=== PATIENT | female | born 1985 | race Caucasian/White ===

== ENCOUNTER 2017-04-20 13:18 | Inpatient (IN) | payer BC ==
[~2017-04-20] VITALS: Ht 157.5 cm; Wt 45.0 kg
[2017-04-20] VITALS (7 sets, daily range): BP systolic 87–149; BP diastolic 53–75; PULSE 81–114; RESP 14–16; TEMP 95.5–99.8; O2SAT 96–99
[~2017-04-20 13:18] MED LIST: LORT5TAB PO; Z.0.NO CURRENT MEDS
--- NOTE | 2017-04-20 13:50 | PD ---
HPI Chief Complaint: Skin Problem Time Seen by Provider: 13:49 Travel History International Travel<30 days: No Contact w/Intl Traveler<30days: No Traveled to known affect area: No History of Present Illness HPI 31-year-old occasional female with history of IV drug abuse presents to emergency Department with large swelling with erythema and tenderness in the right upper medial inner thigh, with chills and low-grade fever. She states she 's had this developing over the past week. There is no drainage. Patient denies nausea, vomiting, shortness of breath, or cough. She denies chest pain or abdominal pain.. He denies numbness or tingling in the right leg. She denies vaginal or urinary symptoms. She denies as she is currently on her period. Patient is noted to have low-grade temperature and tachycardia in triage. She has no known drug allergies. PFSH Past Medical History Diminished Hearing: No ?: Not LMP: 04/17/17 Social History Alcohol Use: Yes (OCCASIONAL) Tobacco Use: Yes (1/2 PPD) Substance Use: No Allergies-Medications (Allergen,Severity, Reaction): Coded Allergies: No Known Allergies (Unverified , 04/20/17) Reported Meds & Prescriptions Reported Meds & Active Scripts Active No Active Prescriptions or Reported Medications Review of Systems Except as stated in HPI: all other systems reviewed are Neg General / Constitutional: Positive: Fever, Chills Eyes: No: Visual changes HENT: No: Headaches, Vertigo, Lightheadedness, Sore Throat, Rhinitis, Rhinorrhea, Congestion, Nosebleed, Neck Stiffness, Neck Pain, Dental Difficulties, Earache Cardiovascular: No: Chest Pain or Discomfort Respiratory: No: Shortness of Breath Gastrointestinal: No: Nausea, Vomiting, Diarrhea, Abdominal Pain Genitourinary: No: Urgency, Frequency, Dysuria, Pelvic Pain, Flank Pain, Discharge Musculoskeletal: No: Pain Skin: Positive Lesions, No Rash Neurologic: No: Weakness Psychiatric: No: Depression Endocrine: No: Polydipsia Hematologic/Lymphatic: No: Easy Bruising Physical Exam Narrative GENERAL: She appears in mild to moderate distress. SKIN: Warm and dry. Normal color. Normal turgor. Patient has multiple obvious injection arce to both hands and forearms. Patient has a firm erythematous swollen indurated nonfluctuant area to the right upper medial inner thigh measuring 12 cm x 8 cm without obvious pointing. It does not seem to involve the inguinal lymph nodes at this time. It is not associated with the perineum. HEAD: Atraumatic. Normocephalic. EYES: Pupils equal and round. No scleral icterus. No injection or drainage. ENT: No nasal bleeding or discharge. Mucous membranes pink and moist. NECK: Trachea midline. No JVD. CARDIOVASCULAR: Regular rate and rhythm. RESPIRATORY: No accessory muscle use. Clear to auscultation. Breath sounds equal bilaterally. GASTROINTESTINAL: Abdomen soft, non-tender, nondistended. Hepatic and splenic margins not palpable. MUSCULOSKELETAL: Extremities without clubbing, cyanosis, or edema. No obvious deformities. NEUROLOGICAL: Awake and alert. No obvious cranial nerve deficits. Motor grossly within normal limits. Five out of 5 muscle strength in the arms and legs. Normal speech. PSYCHIATRIC: Appropriate mood and affect; insight and judgment normal. Data Data Last Documented VS Vital Signs Date Time Temp Pulse Resp B/P (MAP) Pulse Ox O2 Delivery O2 Flow Rate FiO2 04/20/17 14:23 Room Air 04/20/17 14:23 04/20/17 13:51 100 04/20/17 13:19 99.8 14 99 Orders Orders Sepsis Workup Initiated (04/20/17 ) Electrocardiogram (04/20/17 13:55) Complete Blood Count With Diff (04/20/17 13:55) Comprehensive Metabolic Panel (04/20/17 13:55) Prothrombin Time / Inr (Pt) (04/20/17 13:55) Act Partial Throm Time (Ptt) (04/20/17 13:55) Lactic Acid Sepsis Protocol (04/20/17 13:55) Urinalysis - C+S If Indicated (04/20/17 13:55) Blood Culture (04/20/17 13:55) Chest, Single Ap (04/20/17 13:55) Blood Glucose (04/20/17 13:55) Ecg Monitoring (04/20/17 13:55) Iv Access Insert/Monitor (04/20/17 13:55) Oximetry (04/20/17 13:55) Oxygen Administration (04/20/17 13:55) Piperacil-Tazo 4.5 Gm Premix (Zosyn 4.5 (04/20/17 13:55) Vancomycin Inj (Vancomycin Inj) (04/20/17 13:55) Sodium Chlor 0.9% 1000 Ml Inj (Ns 1000 M (04/20/17 13:55) Sodium Chlor 0.9% 1000 Ml Inj (Ns 1000 M (04/20/17 13:55) Sodium Chlor 0.9% 1000 Ml Inj (Ns 1000 M (04/20/17 13:55) Acetaminophen (Tylenol) (04/20/17 14:00) Ct Femur W Iv Contrast (04/20/17 ) Vascular Access Team Consult/P PRN (04/20/17 14:46) Vascular Poc Ultrasound (04/20/17 ) Labs Laboratory Tests Test 04/20/17 14:20 White Blood Count 9.1 TH/MM3 Red Blood Count 4.11 MIL/MM3 Hemoglobin 13.6 GM/DL Hematocrit 38.3 % Mean Corpuscular Volume 93.3 FL Mean Corpuscular Hemoglobin 33.2 PG Mean Corpuscular Hemoglobin Concent 35.6 % Red Cell Distribution Width 15.1 % Platelet Count 192 TH/MM3 Mean Platelet Volume 7.7 FL Neutrophils (%) (Auto) 77.0 % Lymphocytes (%) (Auto) 17.8 % Monocytes (%) (Auto) 4.6 % Eosinophils (%) (Auto) 0.4 % Basophils (%) (Auto) 0.2 % Neutrophils # (Auto) 7.0 TH/MM3 Lymphocytes # (Auto) 1.6 TH/MM3 Monocytes # (Auto) 0.4 TH/MM3 Eosinophils # (Auto) 0.0 TH/MM3 Basophils # (Auto) 0.0 TH/MM3 CBC Comment DIFF FINAL Differential Comment Prothrombin Time 11.1 SEC Prothromb Time International Ratio 1.1 RATIO Activated Partial Thromboplast Time 23.1 SEC Blood Urea Nitrogen 10 MG/DL Creatinine 0.70 MG/DL Random Glucose 88 MG/DL Total Protein 8.3 GM/DL Albumin 3.5 GM/DL Calcium Level 9.0 MG/DL Alkaline Phosphatase 74 U/L Aspartate Amino Transf (AST/SGOT) 39 U/L Alanine Aminotransferase (ALT/SGPT) 20 U/L Total Bilirubin 0.8 MG/DL Sodium Level 135 MEQ/L Potassium Level 3.3 MEQ/L Chloride Level 101 MEQ/L Carbon Dioxide Level 24.9 MEQ/L Anion Gap 9 MEQ/L Estimat Glomerular Filtration Rate 98 ML/MIN Lactic Acid Level 1.1 mmol/L MDM Medical Decision Making Medical Screen Exam Complete: Yes Emergency Medical Condition: Yes Differential Diagnosis Early sepsis. Cellulitis. Large abscess to the right thigh. It should IV drug use. Probable MRSA. Narrative Course Sepsis protocol was initiated. Labs ordered including CBC, CMP, urinalysis, urine , lactic acid, coagulations studies. IV access is obtained, and patient is given 4.5 g Zosyn IV as well as [address] of the right femur is ordered with contrast to evaluate abscess versus cellulitis extent. Patient is given acetaminophen 650 mg by mouth. Patient is given 2 L normal saline bolus. CT of the right femur shows: 1. There is diffuse nonspecific edema throughout the subcutaneous soft tissues along the medial aspect of the right thigh. 2. Small focal fluid collection in the upper medial thigh measuring 2.2 x 1.3 cm suggestive of a small soft tissue abscess. CBC is unremarkable. Coags are normal. Chemistries significant for sodium 135, potassium 3.3, lactic acid is 1.1. AST is 39, total protein is 8.3. Patient was discussed with and examined by Dr. Ruth. Call was placed to the hospitalist for admission with surgical consult requested. Sepsis Criteria SIRS Criteria (2 or more): Heart rate over 90 Sepsis Criteria (SIRS+source): Infect source susp/known Diagnosis Primary Impression: Cellulitis of right thigh Additional Impressions: Abscess of right thigh IV drug user Admitting Information Admitting Physician Requests: Admit Scripts No Active Prescriptions or Reported Meds Condition: Stable Silvestre Toledo Apr 20, 2017 13:50
[2017-04-20] MEDS ORDERED: PIPERACIL-TAZO 4.5 GM PREMIX 100 ML IV STA (13:55)
[2017-04-20] MEDS ORDERED: SODIUM CHLOR 0.9% 1000 ML INJ 100 ML IV ONE (13:55)
[2017-04-20] MEDS ORDERED: SODIUM CHLOR 0.9% 1000 ML INJ 1,000 ML IV ONE ×2 (13:55)
[2017-04-20] MEDS ORDERED: VANCOMYCIN INJ 1,000 MG in SODIUM CHLOR 0.9% 250 ML INJ 250 ML IV STA (13:55)
[2017-04-20] MEDS ORDERED: ACETAMINOPHEN 325 MG TAB PO ONE (14:00)
[2017-04-20 14:57] LABS: BASOPHIL % 0.2 % (0.0-2.0); EOSINOPHIL % 0.4 % (0.0-4.0); HEMATOCRIT 38.3 % (35.0-46.0); LYMPH % 17.8 % (9.0-44.0); LYMPHOCYTE # 1.6 TH/MM3 (1.0-4.8); MEAN CELL VOLUME 93.3 FL (80.0-100.0); MEAN CORPUSCULAR HEMOGLOBIN 33.2 PG (27.0-34.0); MEAN CORPUSCULAR HGB CONC 35.6 % (32.0-36.0); MONO % 4.6 % (0.0-8.0); PLATELET COUNT 192 TH/MM3 (150-450); RED BLOOD COUNT 4.11 MIL/MM3 (4.00-5.30); RED CELL DISTRIBUTION WIDTH 15.1 % (11.6-17.2); WHITE BLOOD COUNT 9.1 TH/MM3 (4.0-11.0)
[2017-04-20 14:59] LABS: HEMO FLAGS DIFF FINAL
[2017-04-20] MEDS ORDERED: IOHEXOL 350 MG/ML 10 ML VIAL (for RAD DIAG) IVCONTRAST ONE (15:08)
[2017-04-20 15:09] LABS: APTT (PATIENT) 23.1 SEC (24.3-30.1); INTERNATIONAL NORMALIZED RATIO 1.1 RATIO; PROTHROMBIN TIME - PATIENT 11.1 SEC (9.8-11.6)
[2017-04-20 15:15] LABS: ALT (GPT) 20 U/L (10-53); ANION GAP 9 MEQ/L (5-15); AST (GOT) 39 U/L (15-37); BICARBONATE 24.9 MEQ/L (21.0-32.0); BLOOD UREA NITROGEN 10 MG/DL (7-18); CHLORIDE 101 MEQ/L (98-107); GLOMERULAR FILTRATION RATE 98 ML/MIN (>89); POTASSIUM 3.3 MEQ/L (3.5-5.1); SODIUM (NA) 135 MEQ/L (136-145)
[2017-04-20 15:17] LABS: ALKALINE PHOSPHATASE 74 U/L (45-117); TOTAL BILIRUBIN ADULT 0.8 MG/DL (0.2-1.0)
--- NOTE | 2017-04-20 15:21 | RADRPT ---
EXAM DATE/TIME: 04/20/2017 14:31 [facility] COMPARISON: No previous studies available for comparison. INDICATIONS : Fever. MEDICAL HISTORY : None. SURGICAL HISTORY : None. ENCOUNTER: Initial ACUITY: 1 day PAIN SCORE: 0/10 LOCATION: Bilateral chest FINDINGS: A single view of the chest demonstrates the lungs to be symmetrically aerated without evidence of mas s, infiltrate or effusion. The cardiomediastinal contours are unremarkable. Osseous structures are intact. CONCLUSION: No acute disease. Reuben Ron MD on April 20, 2017 at 15:19 Board Certified Radiologist. This report was verified electronically.
--- NOTE | 2017-04-20 15:44 | RADRPT ---
EXAM DATE/TIME: 04/20/2017 15:08 [facility] COMPARISON: No previous studies available for comparison. INDICATIONS : Abscess right thigh. IV CONTRAST: 75 cc Omnipaque 350 (iohexol) IV RADIATION DOSE: CTDIvol (mGy) MEDICAL HISTORY : Heroin abuse. SURGICAL HISTORY : None. ENCOUNTER: Initial ACUITY: 1 week PAIN SCALE: 5/10 LOCATION: Right thigh TECHNIQUE: Volumetric scanning of the femur was performed. Using automated exposure control and adjustment of t he mA and/or kV according to patient size, radiation dose was kept as low as reasonably achievable to obtain optimal diagnostic quality images. DICOM format image data is available electronically for review and comparison. FINDINGS: BONES: No evidence of fracture. Alignment is within normal limits. JOINTS: No evidence of joint narrowing or effusion. SOFT TISSUES: There is nonspecific in subcutaneous fat along the medial aspect of the right thigh. There appears to be a small focal fluid collection in the subcutaneous soft tissues measuring 2.2 x 1.3 cm in the upp er medial thigh. This may be a small soft tissue abscess. CONCLUSION: 1. There is diffuse nonspecific edema throughout the subcutaneous soft tissues along the medial aspec t of the right thigh. 2. Small focal fluid collection in the upper medial thigh measuring 2.2 x 1.3 cm suggestive of a smal l soft tissue abscess. Reuben Ron MD on April 20, 2017 at 15:40 Board Certified Radiologist. This report was verified electronically.
[2017-04-20] MEDS ORDERED: SENNOSIDES 8.6 MG TAB PO PRN (16:30)
[2017-04-20] MEDS ORDERED: NALOXONE HCL 0.4 MG/ML AMP IV PUSH PRN (16:30)
[2017-04-20] MEDS ORDERED: PROCHLORPERAZINE 25 MG SUPP RECTAL PRN (16:30)
[2017-04-20] MEDS ORDERED: LORazepam 2 MG TAB PO PRN (16:30)
[2017-04-20] MEDS ORDERED: FLUMAZENIL 0.5 MG/5 ML VIAL IV PUSH PRN (16:30)
[2017-04-20] MEDS ORDERED: LORazepam 2 MG/ML VIAL IV PUSH PRN ×4 (16:30)
[2017-04-20] MEDS ORDERED: MULTIVITAMIN TAB PO ONE (16:30)
[2017-04-20] MEDS ORDERED: ONDANSETRON HCL 4 MG/2 ML VIAL IVP PRN (16:30)
[2017-04-20] MEDS ORDERED: LACTULOSE SYRUP 20 GM/30 ML CUP PO PRN (16:30)
[2017-04-20] MEDS ORDERED: FOLIC ACID 1 MG TAB PO ONE (16:30)
[2017-04-20] MEDS ORDERED: ACETAMINOPHEN 325 MG TAB PO PRN ×2 (16:30)
[2017-04-20] MEDS ORDERED: THIAMINE HCL 100 MG TAB PO ONE (16:30)
[2017-04-20] MEDS ORDERED: LORazepam 1 MG TAB PO PRN (16:30)
[2017-04-20] MEDS ORDERED: Vancomycin Consult Pharmacy 1 EA OTHER SCH (16:30)
[2017-04-20] MEDS ORDERED: SODIUM CHLORIDE 0.9% FLUSH 10 ML FLUSH IV FLUSH PRN (16:30)
[2017-04-20] MEDS ORDERED: BISACODYL 10 MG SUPP RECTAL PRN (16:30)
[2017-04-20] MEDS ORDERED: MAGNESIUM HYDROXIDE SUSP 30 ML CUP PO PRN (16:30)
[2017-04-20] MEDS ORDERED: MORPHINE SULFATE 4 MG/ML INJ IV PUSH PRN ×2 (16:30)
[2017-04-20] MEDS ORDERED: CHLORHEXIDINE GLUCONATE 2 % 1 PACK (2 CLOTHS) TOP PRN (16:45)
[2017-04-20] MEDS ORDERED: MISCELLANEOUS NURSING INFORMATION XX SCH (16:45)
--- NOTE | 2017-04-20 16:50 | HHI.HP ---
[facility] Service [facility] Primary Care Physician No Primary Care Physician Admission Diagnosis Right Thigh Cellulitis/Abscess with Sepsis Diagnoses: (1) IV drug user Diagnosis: Principal (2) Cellulitis of right thigh Diagnosis: Principal (3) Abscess of right thigh Diagnosis: Principal (4) Tobacco abuse Diagnosis: Secondary (5) Heroin abuse Diagnosis: Principal Chief Complaint: Skin abscess/problem Travel History International Travel<30 Days: No Contact w/Intl Traveler <30 Da: No Traveled to Known Affected Are: No History of Present Illness Patient is a 31-year-old female. Who presented to the hospital with an abscess/ area of large swelling with erythema and tenderness in the right upper thigh almost groin area. With chills and low-grade fever. Patient has a history of IV drug abuse with heroin. She states this has been developing over the past week. Denies any drainage yet. Denies any nausea vomiting shortness of breath or cough. She denies any chest pain or abdominal pain. She denies any numbness or tingling in the right leg denies any vaginal or urinary symptoms denies that she is as she is currently on her period patient is noted to have low-grade temperatures and tachycardia. She has no known drug allergies. Is currently not taking any medications other than her when that she shooting up Has a history of what sounds like probably MRSA and abscesses from shooting up heroin Review of Systems Constitutional: COMPLAINS OF: Fever, DENIES: Diaphoretic episodes, Fatigue, Weight gain, Weight loss, Chills, Dizziness, Change in appetite Endocrine: DENIES: Abnorml menstrual pattern, Heat/cold intolerance Eyes: DENIES: Blurred vision, Diplopia, Eye inflammation Ears, nose, mouth, throat: DENIES: Tinnitus, Hearing loss, Vertigo, Nasal discharge Respiratory: DENIES: Apneas, Cough, Snoring Cardiovascular: DENIES: Chest pain, Palpitations, Syncope, Dyspnea on Exertion Gastrointestinal: DENIES: Abdominal pain, Black stools, Bloody stools Genitourinary: DENIES: Abnormal vaginal bleeding, Dysmenorrhea Musculoskeletal: DENIES: Joint pain, Muscle aches, Stiffness Integumentary: COMPLAINS OF: Rash, DENIES: Abnormal pigmentation, Pruritus, Nail changes, Breast masses, Breast skin changes Hematologic/lymphatic: DENIES: Bruising, Lymphadenopathy Immunologic/allergic: DENIES: Eczema, Urticaria Neurologic: DENIES: Abnormal gait, Headache, Localized weakness, Paresthesias Psychiatric: DENIES: Anxiety, Confusion, Mood changes, Depression, Hallucinations Except as stated in HPI: all other systems reviewed are Neg Past Family Social History Past Medical History IV drug abuse History of what sounds like MRSA abscesses before Heroin abuse Tobacco abuse Past Surgical History History of multiple incisions and drainage for abscesses probably MRSA Reported Medications Reported Meds & Active Scripts Active No Active Prescriptions or Reported Medications Allergies: Coded Allergies: No Known Allergies (Unverified , 04/20/17) Active Ordered Medications Current Medications Piperacillin Sod/ Tazobactam Sod 100 ml @ 200 mls/hr ONCE STAT IV Last administered on 04/20/17 16:33; Start 04/20/17 at 13:55; Stop 04/20/17 at 14 :24; Status DC Vancomycin HCl 1000 mg/Sodium Chloride 250 ml @ 250 mls/hr ONCE STAT IV Last administered on 04/20/17 15:27; Start 04/20/17 at 13:55; Stop 04/20/17 at 14 :54; Status DC Sodium Chloride 1,000 ml @ 1,000 mls/hr Q1H ONCE IV Last administered on 04/20 14:29; Start 04/20/17 at 13:55; Stop 04/20/17 at 14:54; Status DC Sodium Chloride 1,000 ml @ 1,000 mls/hr Q1H ONCE IV Last administered on 04/20 15:27; Start 04/20/17 at 13:55; Stop 04/20/17 at 14:54; Status DC Sodium Chloride 100 ml @ 1,000 mls/hr Q6M ONCE IV Last administered on 16:31; Start 04/20/17 at 13:55; Stop 04/20/17 at 14:01; Status DC Acetaminophen (Tylenol) 650 mg ONCE ONCE PO Last administered on 04/20/17 15 :26; Start 04/20/17 at 14:00; Stop 04/20/17 at 14:01; Status DC Pharmacy Profile Note 0 ml @ 0 mls/hr UNSCH XX ; Start 04/20/17 at 16:30; Status UNV Piperacillin Sod/ Tazobactam Sod 100 ml @ 200 mls/hr Q6H IV ; Start 04/20/17 at 16:30; Status UNV Sodium Chloride 1,000 ml @ 125 mls/hr Q8H IV ; Start 04/20/17 at 16:26; Status UNV Sodium Chloride (NS Flush) 2 ml UNSCH PRN IV FLUSH FLUSH AFTER USING IV ACCESS ; Start 04/20/17 at 16:30; Status UNV Sodium Chloride (NS Flush) 2 ml BID IV FLUSH ; Start 04/20/17 at 21:00; Status UNV Acetaminophen (Tylenol) 650 mg Q4H PRN PO TEMP > 100.4; Start 04/20/17 at 16: 30; Status UNV Ondansetron HCl (Zofran Inj) 4 mg Q6H PRN IVP NAUSEA OR VOMITING; Start at 16:30; Status UNV Prochlorperazine (Compazine Supp) 25 mg Q12H PRN NV NAUSEA OR VOMITING; Start 04/20/17 at 16:30; Status UNV Zolpidem Tartrate (Ambien) 5 mg HS PRN PO INSOMNIA; Start 04/20/17 at 16:30; Status UNV Enoxaparin Sodium (Lovenox Inj) 40 mg Q24H SQ ; Start 04/20/17 at 16:30; Status UNV Acetaminophen (Tylenol) 650 mg Q6H PRN PO PAIN SCALE 1 TO 2; Start 04/20/17 at 16:30; Status UNV Oxycodone/ Acetaminophen (Percocet 5-325 Mg) 1 tab Q6H PRN PO PAIN SCALE 3 TO 5; Start 04/20/17 at 16:30; Status UNV Oxycodone/ Acetaminophen (Percocet 10-325 Mg) 1 tab Q6H PRN PO PAIN SCALE 6 TO 10; Start 04/20/17 at 16:30; Status UNV Morphine Sulfate (Morphine Inj) 2 mg Q3H PRN IV PUSH Pain 3-5; if unable to take PO; Start 04/20/17 at 16:30; Status UNV Morphine Sulfate (Morphine Inj) 4 mg Q3H PRN IV PUSH Pain 6-10;if unable to take PO; Start 04/20/17 at 16:30; Status UNV Naloxone HCl (Narcan Inj) 0.4 mg UNSCH PRN IV PUSH SEE LABEL COMMENTS; Start 04/20/17 at 16:30; Status UNV Senna/Docusate Sodium (Antionette-Colace) 1 tab BID PO ; Start 04/20/17 at 21:00; Status UNV Magnesium Hydroxide (Milk Of Magnesia Liq) 30 ml Q12H PRN PO Mild constipation ; Start 04/20/17 at 16:30; Status UNV Sennosides (Senokot) 17.2 mg Q12H PRN PO Moderate constipation; Start at 16:30; Status UNV Bisacodyl (Dulcolax Supp) 10 mg DAILY PRN RECTAL SEVERE CONSITIPATION; Start 04/20/17 at 16:30; Status UNV Lactulose (Lactulose Liq) 30 ml DAILY PRN PO SEVERE CONSITIPATION; Start 04/20 at 16:30; Status UNV Flumazenil (Romazicon Inj) 0.2 mg Q1M PRN IV PUSH SEE LABEL COMMENTS; Start at 16:30; Status UNV Lorazepam (Ativan) 1 mg Q4H PRN PO CIWA 8 - 10; Start 04/20/17 at 16:30; Status UNV Lorazepam (Ativan Inj) 1 mg Q4H PRN IV PUSH CIWA 8 - 10; Start 04/20/17 at 16: 30; Status UNV Lorazepam (Ativan) 2 mg Q2H PRN PO CIWA 11-14; Start 04/20/17 at 16:30; Status UNV Lorazepam (Ativan Inj) 2 mg Q2H PRN IV PUSH CIWA 11-14; Start 04/20/17 at 16: 30; Status UNV Lorazepam (Ativan Inj) 2 mg Q1H PRN IV PUSH CIWA 15-20; Start 04/20/17 at 16: 30; Status UNV Lorazepam (Ativan Inj) 2 mg Q15M PRN IV PUSH CIWA > 20; Start 04/20/17 at 16: 30; Status UNV Chlordiazepoxide (Librium) 50 mg Q6H PRN PO WITHDRAWAL; Start 04/20/17 at 16: 30; Status UNV Multivitamins (Theragran) 1 tab ONCE ONCE PO ; Start 04/20/17 at 16:30; Stop 04/20/17 at 16:31; Status UNV Multivitamins (Theragran) 1 tab DAILY PO ; Start 04/21/17 at 09:00; Status UNV Folic Acid (Folate) 1 mg ONCE ONCE PO ; Start 04/20/17 at 16:30; Stop at 16:31; Status UNV Folic Acid (Folate) 1 mg DAILY PO ; Start 04/21/17 at 09:00; Status UNV Thiamine HCl (Vitamin B1) 100 mg ONCE ONCE PO ; Start 04/20/17 at 16:30; Stop 04/20/17 at 16:31; Status UNV Thiamine HCl (Vitamin B1) 100 mg DAILY PO ; Start 04/21/17 at 09:00; Status UNV Miscellaneous Information 1 Q361D XX ; Start 04/20/17 at 16:45; Status UNV Chlorhexidine Gluconate (Chlorhexidine 2% Cloth) 3 pack Taper DAILY@04 TOP ; Start 04/21/17 at 04:00; Stop 04/17/18 at 03:59; Status UNV Chlorhexidine Gluconate (Chlorhexidine 2% Cloth) 3 pack UNSCH PRN TOP HYGIENIC CARE; Start 04/20/17 at 16:45; Status UNV Family History Denies any medical problems in her parents that she knows of Social History Shoots up IV heroin and has a history of IV drug abuse or extended period of time Drinks alcohol occasionally Smokes tobacco daily Physical Exam Vital Signs Vital Signs Date Time Temp Pulse Resp B/P (MAP) Pulse Ox O2 Delivery O2 Flow Rate FiO2 04/20/17 16:00 100 16 110/67 (81) 99 04/20/17 14:23 Room Air 04/20/17 14:23 Room Air 04/20/17 13:51 100 04/20/17 13:19 99.8 114 14 149/75 (99) 99 Physical Exam GENERAL: This is a well-nourished, well-developed patient, in no apparent distress. SKIN: No rashes, ecchymoses or lesions. Cool and dry. Multiple tattoos right groin is area of the right thigh at her panty line almost that's probably about 6 or 7 cm in diameter tender warmth and erythema redness but no fluctuance yet HEAD: Atraumatic. Normocephalic. No temporal or scalp tenderness. EYES: Pupils equal round and reactive. Extraocular motions intact. No scleral icterus. No injection or drainage. ENT: Nose without bleeding, purulent drainage or septal hematoma. Throat without erythema, tonsillar hypertrophy or exudate. Uvula midline. Airway patent. NECK: Trachea midline. No JVD or lymphadenopathy. Supple, nontender, no meningeal signs. CARDIOVASCULAR: Regular rate and rhythm without murmurs, gallops, or rubs. S1 and S2 no S3 or S4 RESPIRATORY: Clear to auscultation. Breath sounds equal bilaterally. No wheezes , rales, or rhonchi. GASTROINTESTINAL: Abdomen soft, non-tender, nondistended. No hepato-splenomegaly , or palpable masses. No guarding. MUSCULOSKELETAL: Extremities without clubbing, cyanosis, or edema. No joint tenderness, effusion, or edema noted. No calf tenderness. Negative Homans sign bilaterally. Right groin has the right thigh area and her panty line at about 6 -7 cm in diameter with tender warmth and erythema and redness but no fluctuance yet NEUROLOGICAL: Awake and alert. Cranial nerves II through XII intact. Motor and sensory grossly within normal limits. Five out of 5 muscle strength in all muscle groups. Normal speech. Insight and judgment is limited Mood and behavior is appropriate Laboratory Laboratory Tests Test 04/20/17 14:20 White Blood Count 9.1 Red Blood Count 4.11 Hemoglobin 13.6 Hematocrit 38.3 Mean Corpuscular Volume 93.3 Mean Corpuscular Hemoglobin 33.2 Mean Corpuscular Hemoglobin Concent 35.6 Red Cell Distribution Width 15.1 Platelet Count 192 Mean Platelet Volume 7.7 Neutrophils (%) (Auto) 77.0 Lymphocytes (%) (Auto) 17.8 Monocytes (%) (Auto) 4.6 Eosinophils (%) (Auto) 0.4 Basophils (%) (Auto) 0.2 Neutrophils # (Auto) 7.0 Lymphocytes # (Auto) 1.6 Monocytes # (Auto) 0.4 Eosinophils # (Auto) 0.0 Basophils # (Auto) 0.0 CBC Comment DIFF FINAL Differential Comment Prothrombin Time 11.1 Prothromb Time International Ratio 1.1 Activated Partial Thromboplast Time 23.1 Blood Urea Nitrogen 10 Creatinine 0.70 Random Glucose 88 Total Protein 8.3 Albumin 3.5 Calcium Level 9.0 Alkaline Phosphatase 74 Aspartate Amino Transf (AST/SGOT) 39 Alanine Aminotransferase (ALT/SGPT) 20 Total Bilirubin 0.8 Sodium Level 135 Potassium Level 3.3 Chloride Level 101 Carbon Dioxide Level 24.9 Anion Gap 9 Estimat Glomerular Filtration Rate 98 Lactic Acid Level 1.1 Date/Time Source Procedure Growth Status 04/20/17 14:20 Blood Peripheral Aerobic Blood Culture Pending Received 04/20/17 14:20 Blood Peripheral Anaerobic Blood Culture Pending Received Result Diagram: 04/20/17 1420 04/20/17 1420 Imaging Last Impressions Chest X-Ray 04/20/17 1355 Signed Impressions: Service Date/Time: Thursday, April 20, 2017 14:31 - CONCLUSION: No acute disease. Reuben Ron MD Lower Extremity CT 04/20/17 0000 Signed Impressions: Service Date/Time: Thursday, April 20, 2017 15:08 - CONCLUSION: 1. There is diffuse nonspecific edema throughout the subcutaneous soft tissues along the medial aspect of the right thigh. 2. Small focal fluid collection in the upper medial thigh measuring 2.2 x 1.3 cm suggestive of a small soft tissue abscess. Reuben Ron MD Ca[place]ore[place] VTE Risk Assessment Caprini VTE Risk Assessment: No/Low Risk (score <= 1) Caprini Risk Assessment Model Point Value = 1 Point Value = 2 Point Value = 3 Point Value = 5 Age 41-60 Minor surgery BMI > 25 kg/m2 Swollen legs Varicose veins or History of unexplained or recurrent spontaneous Oral contraceptives or hormone replacement Sepsis (< 1 month) Serious lung disease, including pneumonia (< 1 month) Abnormal pulmonary function Acute myocardial infarction Congestive heart failure (< 1 month) History of inflammatory bowel disease Medical patient at bed rest Age 61-74 Arthroscopic surgery Major open surgery (> 45 min) Laparoscopic surgery (> 45 min) Malignancy Confined to bed (> 72 hours) Immobilizing plaster cast Central venous access Age >= 75 History of VTE Family history of VTE Factor V Leiden Prothrombin [id number] Lupus anticoagulant Anticardiolipin antibodies Elevated serum homocysteine Heparin-induced thrombocytopenia Other congenital or acquired thrombophilia Stroke (< 1 month) Elective arthroplasty Hip, pelvis, or leg fracture Acute spinal cord injury (< 1 month) Prophylaxis Regimen Total Risk Factor Score Risk Level Prophylaxis Regimen 0-1 Low Early ambulation 2 Moderate Order ONE of the following: *Sequential Compression Device (SCD) *Heparin 5000 units SQ BID 3-4 Higher Order ONE of the following medications: *Heparin 5000 units SQ TID *Enoxaparin/Lovenox 40 mg SQ daily (WT < 150 kg, CrCl > 30 mL/min) *Enoxaparin/Lovenox 30 mg SQ daily (WT < 150 kg, CrCl > 10-29 mL/min) *Enoxaparin/Lovenox 30 mg SQ BID (WT < 150 kg, CrCl > 30 mL/min) AND/OR *Sequential Compression Device (SCD) 5 or more Highest Order ONE of the following medications: *Heparin 5000 units SQ TID (Preferred with Epidurals) *Enoxaparin/Lovenox 40 mg SQ daily (WT < 150 kg, CrCl > 30 mL/min) *Enoxaparin/Lovenox 30 mg SQ daily (WT < 150 kg, CrCl > 10-29 mL/min) *Enoxaparin/Lovenox 30 mg SQ BID (WT < 150 kg, CrCl > 30 mL/min) AND *Sequential Compression Device (SCD) Assessment and Plan Assessment and Plan Right groin cellulitis/abscess due to IV drug abuse in the area with heroin Consult surgery Vancomycin and Zosyn to cover for MRSA Pain control Fluids Heroin abuse continue on withdrawal protocols use the CIWA protocol Use Librium Multivitamin thiamine and folic acid Tobacco abuse NicoDerm continue on the IV antibiotics Sirs/sepsis continue on aggressive fluid rehydration and antibiotics Denies history of HIV or AIDS or hepatitis B or C Hypokalemia Will replace potassium Elevated liver function tests we'll trend a.m. labs IV drug abuse with heroin recommend cessation We'll consult surgery Code Status Full code Discussed Condition With Emergency room physician and PA and RN and patient Physician Certification 2 Midnight Certification Type: Admission for Inpatient Services Order for Inpatient Services The services are ordered in accordance with Medicare regulations or non- Medicare payer requirements, as applicable. In the case of services not specified as inpatient-only, they are appropriately provided as inpatient services in accordance with the 2-midnight benchmark. Estimated LOS (days): 3 3 days is the estimated time the patient will need to remain in the hospital, assuming treatment plan goals are met and no additional complications. Post-Hospital Plan: Not yet determined Yosef Salinas DO Apr 20, 2017 16:50
[2017-04-20] MEDS ORDERED: ENOXAPARIN SODIUM 40 MG/0.4 ML SYRINGE SQ SCH (17:00)
[2017-04-20] MEDS ORDERED: NICOTINE 14 MG/24 HR PATCH T-DERMAL ONE (17:00)
[2017-04-20] MEDS: oxyCODONE/ACETAMINOPHEN 5 MG/325 MG TAB PO PRN (17:22)
[2017-04-20] MEDS: SODIUM CHLOR 0.9% 1000 ML INJ 1,000 ML IV SCH (19:29)
[2017-04-20] MEDS: chlordiazePOXIDE 25 MG CAP PO PRN (19:29)
[2017-04-20] MEDS: DOCUSATE SODIUM 50 MG/SENNA 8.6 MG TAB PO SCH (19:29)
[2017-04-20] MEDS: SODIUM CHLORIDE 0.9% FLUSH 10 ML FLUSH IV FLUSH SCH (19:30)
--- NOTE | 2017-04-20 19:57 | MB ---
cc: STEF CAMARILLO M.D. DATE OF CONSULTATION 04/20/2017 REASON FOR CONSULTATION Cellulitis right groin. HISTORY OF THE PRESENT ILLNESS This is a 31-year-old female apparently has some problems with heroin addiction and injections. For about 10 days she has been having some swelling her right groin in the medial aspect of her thigh that is becoming more tender and she came in the emergency room with low grade temperature and chills. CT scan was done showing a small amount of fluid and inflammatory response. She is admitted to the hospital for IV antibiotics and withdrawal precautions. Surgery consultation placed for possible abscess drainage if it is unresponsive to antibiotic therapy. PAST HISTORY Significant for: 1. IV drug use. 2. She has had an MRSA abscesses before. 3. She uses heroin and tobacco. REVIEW OF SYSTEMS No cardiac or pulmonary issues. No GI issues or gynecologic issues. PHYSICAL EXAMINATION GENERAL: On physical exam she is sitting up eating of the bowl of chicken needle soup. In no apparent distress. SKIN: She has numerous tattoos on her whole body. HEENT: Head is atraumatic. Pupils equal and round. NECK: Trachea is midline. RESPIRATORY: No wheezes. No distress. Good air movement. NEUROLOGIC: She is awake, alert, oriented, enjoying chicken noodle soup. EXTREMITIES: Numerous tattoos on all of her arms and legs. She has a 5-6 cm swelling with mild erythema in the right medial aspect below the inguinal region and upper medial thigh. Slightly tender. Slightly warm. No fluctuant. I think it is more of a cellulitic response than an abscess. LABORATORY DATA She has a white count 9. H&H of 13 and 38. Coags normal. A lactic acid is 1. LFTs are normal. IMAGING STUDIES CT scan of the lower extremity shows nonspecific edema throughout the subcutaneous tissue and medial aspect of the right thigh with a small fluid collection measuring 2 cm x 1 cm. ASSESSMENT A 31-year-old female with problems with heroin abuse, IV drug use, numerous tattoos, history of MRSA skin infections in the past. PLAN The plan at this time I would since, she just enjoyed a nice big bowl of chicken needle soup, we will just treat her with IV antibiotics. I suspect that she may respond to the IV antibiotics but if she does not over the next 48-72 hours then she might require surgical drainage. She is hoping to prevent any other surgery. Stef Camarillo MD JSTANLEY/KK /7:25 PM /7:42 PM
[2017-04-21] VITALS (8 sets, daily range): BP systolic 85–105; BP diastolic 49–66; PULSE 81–104; RESP 16–20; TEMP 97–100.2; O2SAT 95–100
[2017-04-21] MEDS: SODIUM CHLOR 0.9% 1000 ML INJ 1,000 ML IV SCH ×3 (00:26→13:57)
[2017-04-21] MEDS: VANCOMYCIN 500 MG/NS 100 ML IV SCH ×6 (00:49→16:57)
[2017-04-21] MEDS: CHLORHEXIDINE GLUCONATE 2 % 1 PACK (2 CLOTHS) TOP SCH (04:00)
[2017-04-21] MEDS: PIPERACIL-TAZO 4.5 GM PREMIX 100 ML IV SCH ×4 (05:37→16:59)
[2017-04-21] MEDS: oxyCODONE/ACETAMINOPHEN 10 MG/325 MG TAB PO PRN ×2 (05:40→17:01)
[2017-04-21 08:58] LABS: BASOPHIL % 0.2 % (0.0-2.0); EOSINOPHIL % 0.6 % (0.0-4.0); HEMATOCRIT 33.3 % (35.0-46.0); HEMO FLAGS DIFF FINAL; LYMPH % 14.2 % (9.0-44.0); LYMPHOCYTE # 1.1 TH/MM3 (1.0-4.8); MEAN CELL VOLUME 92.1 FL (80.0-100.0); MEAN CORPUSCULAR HEMOGLOBIN 32.3 PG (27.0-34.0); MONO % 5.2 % (0.0-8.0); NEUT % 79.8 % (16.0-70.0); PLATELET COUNT 182 TH/MM3 (150-450); RED BLOOD COUNT 3.62 MIL/MM3 (4.00-5.30); RED CELL DISTRIBUTION WIDTH 15.3 % (11.6-17.2); WHITE BLOOD COUNT 7.6 TH/MM3 (4.0-11.0)
[2017-04-21] MEDS: chlordiazePOXIDE 25 MG CAP PO PRN ×2 (09:00→18:36)
[2017-04-21] MEDS: THIAMINE HCL 100 MG TAB PO SCH (09:01)
[2017-04-21] MEDS: DOCUSATE SODIUM 50 MG/SENNA 8.6 MG TAB PO SCH ×2 (09:01→20:49)
[2017-04-21] MEDS: NICOTINE 14 MG/24 HR PATCH T-DERMAL SCH (09:01)
[2017-04-21] MEDS: FOLIC ACID 1 MG TAB PO SCH (09:01)
[2017-04-21] MEDS: MULTIVITAMIN TAB PO SCH (09:01)
[2017-04-21] MEDS: SODIUM CHLORIDE 0.9% FLUSH 10 ML FLUSH IV FLUSH SCH ×2 (09:03→20:52)
[2017-04-21] MEDS: REMOVE OLD PATCH T-DERMAL SCH (09:09)
[2017-04-21 09:28] LABS: ANION GAP 7 MEQ/L (5-15); AST (GOT) 38 U/L (15-37); BLOOD UREA NITROGEN 6 MG/DL (7-18); CHLORIDE 109 MEQ/L (98-107); GLOMERULAR FILTRATION RATE 100 ML/MIN (>89); MAGNESIUM 1.9 MG/DL (1.5-2.5); POTASSIUM 3.2 MEQ/L (3.5-5.1); SODIUM (NA) 141 MEQ/L (136-145)
[2017-04-21 09:33] LABS: ALKALINE PHOSPHATASE 69 U/L (45-117); ALT (GPT) 22 U/L (10-53); FREE T4 1.82 NG/DL (0.76-1.46); TOTAL BILIRUBIN ADULT 0.5 MG/DL (0.2-1.0)
--- NOTE | 2017-04-21 09:57 | HHI.PR ---
Subjective Remarks Patient is a 31-year-old female. Who presented to the hospital with an abscess/ area of large swelling with erythema and tenderness in the right upper thigh almost groin area. With chills and low-grade fever. Patient has a history of IV drug abuse with heroin. She states this has been developing over the past week. Denies any drainage yet. Denies any nausea vomiting shortness of breath or cough. She denies any chest pain or abdominal pain. She denies any numbness or tingling in the right leg denies any vaginal or urinary symptoms denies that she is as she is currently on her period patient is noted to have low-grade temperatures and tachycardia. She has no known drug allergies. Is currently not taking any medications other than her when that she shooting up Has a history of what sounds like probably MRSA and abscesses from shooting up heroin 04/21: Seen in his bedroom in the presence of nurse, stable awaiting final recommendations by General Surgery for probable I and D tomorrow. no nausea, vomit or diarrhea Objective Vital Signs Date Time Temp Pulse Resp B/P (MAP) Pulse Ox O2 Delivery O2 Flow Rate FiO2 04/21/17 06:40 18 04/21/17 04:25 100.2 100 17 89/51 (64) 96 04/21/17 04:01 104 04/21/17 00:39 21 04/21/17 00:21 97.0 81 18 85/58 (67) 95 04/20/17 20:15 96.6 85 16 92/53 (66) 96 04/20/17 20:03 81 04/20/17 18:22 18 04/20/17 17:37 95.5 89 15 87/53 (64) 98 04/20/17 16:51 96 21 04/20/17 16:00 100 16 110/67 (81) 99 04/20/17 14:23 Room Air 04/20/17 14:23 Room Air 04/20/17 13:51 100 04/20/17 13:19 99.8 114 14 149/75 (99) 99 I/O 04/20/17 04/20/17 04/20/17 04/21/17 04/21/17 04/21/17 07:00 15:00 23:00 07:00 15:00 23:00 Intake Total 1100 ml 1880 ml Balance 1100 ml 1880 ml Intake Oral 580 ml IV Total 1100 ml 1300 ml # Voids 3 Result Diagram: 04/21/17 0815 04/21/17 0815 Imaging Last Impressions Chest X-Ray 04/20/17 1355 Signed Impressions: Service Date/Time: Thursday, April 20, 2017 14:31 - CONCLUSION: No acute disease. Reuben Ron MD Lower Extremity CT 04/20/17 0000 Signed Impressions: Service Date/Time: Thursday, April 20, 2017 15:08 - CONCLUSION: 1. There is diffuse nonspecific edema throughout the subcutaneous soft tissues along the medial aspect of the right thigh. 2. Small focal fluid collection in the upper medial thigh measuring 2.2 x 1.3 cm suggestive of a small soft tissue abscess. Reuben Ron MD Procedures None Other Results Laboratory Tests Test 04/20/17 14:20 04/20/17 17:57 04/21/17 08:15 Prothrombin Time 11.1 SEC Prothromb Time International Ratio 1.1 RATIO Activated Partial Thromboplast Time 23.1 SEC Lactic Acid Level 1.1 mmol/L Nasal Screen MRSA (PCR) MRSA DETECTED White Blood Count 7.6 TH/MM3 Red Blood Count 3.62 MIL/MM3 Hemoglobin 11.7 GM/DL Hematocrit 33.3 % Mean Corpuscular Volume 92.1 FL Mean Corpuscular Hemoglobin 32.3 PG Mean Corpuscular Hemoglobin Concent 35.0 % Red Cell Distribution Width 15.3 % Platelet Count 182 TH/MM3 Mean Platelet Volume 8.4 FL Neutrophils (%) (Auto) 79.8 % Lymphocytes (%) (Auto) 14.2 % Monocytes (%) (Auto) 5.2 % Eosinophils (%) (Auto) 0.6 % Basophils (%) (Auto) 0.2 % Neutrophils # (Auto) 6.0 TH/MM3 Lymphocytes # (Auto) 1.1 TH/MM3 Monocytes # (Auto) 0.4 TH/MM3 Eosinophils # (Auto) 0.0 TH/MM3 Basophils # (Auto) 0.0 TH/MM3 CBC Comment DIFF FINAL Differential Comment Blood Urea Nitrogen 6 MG/DL Creatinine 0.69 MG/DL Random Glucose 115 MG/DL Total Protein 6.0 GM/DL Albumin 2.4 GM/DL Calcium Level 7.7 MG/DL Phosphorus Level 3.0 MG/DL Magnesium Level 1.9 MG/DL Alkaline Phosphatase 69 U/L Aspartate Amino Transf (AST/SGOT) 38 U/L Alanine Aminotransferase (ALT/SGPT) 22 U/L Total Bilirubin 0.5 MG/DL Sodium Level 141 MEQ/L Potassium Level 3.2 MEQ/L Chloride Level 109 MEQ/L Carbon Dioxide Level 25.0 MEQ/L Anion Gap 7 MEQ/L Estimat Glomerular Filtration Rate 100 ML/MIN Free Thyroxine 1.82 NG/DL Thyroid Stimulating Hormone 3rd Gen 0.362 uIU/ML Objective Remarks GENERAL: This is a well-nourished, well-developed patient, in no apparent distress. SKIN: No rashes, ecchymoses or lesions. Cool and dry. Multiple tattoos right groin is area of the right thigh at her panty line almost that's probably about 6 or 7 cm in diameter tender warmth and erythema redness but no fluctuance yet HEAD: Atraumatic. Normocephalic. No temporal or scalp tenderness. EYES: Pupils equal round and reactive. Extraocular motions intact. No scleral icterus. No injection or drainage. ENT: Nose without bleeding, purulent drainage or septal hematoma. Throat without erythema, tonsillar hypertrophy or exudate. Uvula midline. Airway patent. NECK: Trachea midline. No JVD or lymphadenopathy. Supple, nontender, no meningeal signs. CARDIOVASCULAR: Regular rate and rhythm without murmurs, gallops, or rubs. S1 and S2 no S3 or S4 RESPIRATORY: Clear to auscultation. Breath sounds equal bilaterally. No wheezes , rales, or rhonchi. GASTROINTESTINAL: Abdomen soft, non-tender, nondistended. No hepato-splenomegaly , or palpable masses. No guarding. MUSCULOSKELETAL: Extremities without clubbing, cyanosis, or edema. No joint tenderness, effusion, or edema noted. No calf tenderness. Negative Homans sign bilaterally. Right groin has the right thigh area and her panty line at about 6 -7 cm in diameter with tender warmth and erythema and redness but no fluctuance yet NEUROLOGICAL: Awake and alert. Cranial nerves II through XII intact. Motor and sensory grossly within normal limits. Five out of 5 muscle strength in all muscle groups. Normal speech. Medications and IVs Current Medications Medications (Trade) Dose Ordered Sig/Daniel Route Start Time Stop Time Status Last Admin Pharmacy Profile Note 0 ml @ 0 mls/hr UNSCH OTHER 04/20/17 16:30 Piperacillin Sod/ Tazobactam Sod 100 ml @ 200 mls/hr Q6H IV 04/21/17 00:00 04/21/17 05:37 Sodium Chloride 1,000 ml @ 125 mls/hr Q8H IV 04/20/17 16:26 04/21/17 05:37 (NS Flush) 2 ml UNSCH PRN IV FLUSH 04/20/17 16:30 (NS Flush) 2 ml BID IV FLUSH 04/20/17 21:00 04/20/17 19:30 (Tylenol) 650 mg Q4H PRN PO 04/20/17 16:30 (Zofran Inj) 4 mg Q6H PRN IVP 04/20/17 16:30 (Compazine Supp) 25 mg Q12H PRN RECTAL 04/20/17 16:30 (Ambien) 5 mg HS PRN PO 04/20/17 16:30 (Lovenox Inj) 40 mg Q24H SQ 04/20/17 17:00 04/20/17 17:07 (Tylenol) 650 mg Q6H PRN PO 04/20/17 16:30 (Percocet 5-325 Mg) 1 tab Q6H PRN PO 04/20/17 16:30 04/20/17 17:22 (Percocet 10-325 Mg) 1 tab Q6H PRN PO 04/20/17 16:30 04/21/17 05:40 (Morphine Inj) 2 mg Q3H PRN IV PUSH 04/20/17 16:30 (Morphine Inj) 4 mg Q3H PRN IV PUSH 04/20/17 16:30 (Narcan Inj) 0.4 mg UNSCH PRN IV PUSH 04/20/17 16:30 (Antionette-Colace) 1 tab BID PO 04/20/17 21:00 04/21/17 09:01 (Milk Of Magnesia Liq) 30 ml Q12H PRN PO 04/20/17 16:30 (Senokot) 17.2 mg Q12H PRN PO 04/20/17 16:30 (Dulcolax Supp) 10 mg DAILY PRN RECTAL 04/20/17 16:30 (Lactulose Liq) 30 ml DAILY PRN PO 04/20/17 16:30 (Romazicon Inj) 0.2 mg Q1M PRN IV PUSH 04/20/17 16:30 (Ativan) 1 mg Q4H PRN PO 04/20/17 16:30 (Ativan Inj) 1 mg Q4H PRN IV PUSH 04/20/17 16:30 (Ativan) 2 mg Q2H PRN PO 04/20/17 16:30 (Ativan Inj) 2 mg Q2H PRN IV PUSH 04/20/17 16:30 (Ativan Inj) 2 mg Q1H PRN IV PUSH 04/20/17 16:30 (Ativan Inj) 2 mg Q15M PRN IV PUSH 04/20/17 16:30 (Librium) 50 mg Q6H PRN PO 04/20/17 16:30 04/21/17 09:00 (Theragran) 1 tab DAILY PO 04/21/17 09:00 04/21/17 09:01 (Folate) 1 mg DAILY PO 04/21/17 09:00 04/21/17 09:01 (Vitamin B1) 100 mg DAILY PO 04/21/17 09:00 04/21/17 09:01 Miscellaneous Information 1 Q361D XX 04/20/17 16:45 (Chlorhexidine 2% Cloth) 3 pack Taper DAILY@04 TOP 04/21/17 04:00 04/17/18 03:59 (Chlorhexidine 2% Cloth) 3 pack UNSCH PRN TOP 04/20/17 16:45 (Habitrol 14 Mg Patch.24 Hr) 1 patch DAILY T-DERMAL 04/21/17 09:00 04/21/17 09:01 Miscellaneous Information 1 DAILY T-DERMAL 04/21/17 09:00 04/21/17 09:09 Vancomycin HCl 500 mg/Sodium Chloride 100 ml @ 200 mls/hr Q8H IV 04/21/17 00:00 04/21/17 09:03 Miscellaneous Information SPECIFIC LAB TO BE ... ONCE ONCE .XX 04/21/17 15:45 04/21/17 15:46 A/P Assessment and Plan Right groin cellulitis/abscess due to IV drug abuse in the area with heroin General Surgery following, not yet ready for procedure. Vancomycin and Zosyn to cover for MRSA Pain control Fluids Heroin abuse continue on withdrawal protocols use the CIWA protocol Use Librium Multivitamin thiamine and folic acid Tobacco abuse NicoDerm continue on the IV antibiotics Sirs/sepsis continue on aggressive fluid rehydration and antibiotics Electrolyte derangement replaced and following. IV drug abuse with heroin recommend cessation Code Status Full code Discharge Planning Once cleared by Surgery Orlin Owusu MD Apr 21, 2017 09:57
[2017-04-21] MEDS ORDERED: MORPHINE SULFATE 4 MG/ML INJ IV PUSH PRN (10:30)
--- NOTE | 2017-04-21 13:01 | HHI.PR ---
cc: Stef Dempsey MD Subjective Subjective Notes PROGRESS NOTE FOR SURGICAL ATTENDING, DR. STEF DEMPSEY Resting in bed Reports her leg feels better today Objective Vitals/I&O Vital Signs Date Time Temp Pulse Resp B/P (MAP) Pulse Ox O2 Delivery O2 Flow Rate FiO2 04/21/17 12:00 97.2 94 19 93/52 (66) 99 04/21/17 00:39 21 04/20/17 14:23 Room Air Labs Laboratory Tests Test 04/20/17 14:20 04/20/17 17:57 04/21/17 08:15 White Blood Count 9.1 7.6 Red Blood Count 4.11 3.62 Hemoglobin 13.6 11.7 Hematocrit 38.3 33.3 Mean Corpuscular Volume 93.3 92.1 Mean Corpuscular Hemoglobin 33.2 32.3 Mean Corpuscular Hemoglobin Concent 35.6 35.0 Red Cell Distribution Width 15.1 15.3 Platelet Count 192 182 Mean Platelet Volume 7.7 8.4 Neutrophils (%) (Auto) 77.0 79.8 Lymphocytes (%) (Auto) 17.8 14.2 Monocytes (%) (Auto) 4.6 5.2 Eosinophils (%) (Auto) 0.4 0.6 Basophils (%) (Auto) 0.2 0.2 Neutrophils # (Auto) 7.0 6.0 Lymphocytes # (Auto) 1.6 1.1 Monocytes # (Auto) 0.4 0.4 Eosinophils # (Auto) 0.0 0.0 Basophils # (Auto) 0.0 0.0 CBC Comment DIFF FINAL DIFF FINAL Differential Comment Prothrombin Time 11.1 Prothromb Time International Ratio 1.1 Activated Partial Thromboplast Time 23.1 Blood Urea Nitrogen 10 6 Creatinine 0.70 0.69 Random Glucose 88 115 Total Protein 8.3 6.0 Albumin 3.5 2.4 Calcium Level 9.0 7.7 Alkaline Phosphatase 74 69 Aspartate Amino Transf (AST/SGOT) 39 38 Alanine Aminotransferase (ALT/SGPT) 20 22 Total Bilirubin 0.8 0.5 Sodium Level 135 141 Potassium Level 3.3 3.2 Chloride Level 101 109 Carbon Dioxide Level 24.9 25.0 Anion Gap 9 7 Estimat Glomerular Filtration Rate 98 100 Lactic Acid Level 1.1 Nasal Screen MRSA (PCR) MRSA DETECTED Phosphorus Level 3.0 Magnesium Level 1.9 Free Thyroxine 1.82 Thyroid Stimulating Hormone 3rd Gen 0.362 Date/Time Source Procedure Growth Status 04/20/17 14:20 Blood Peripheral Aerobic Blood Culture - Preliminary NO GROWTH IN 1 DAY Resulted 04/20/17 14:20 Blood Peripheral Anaerobic Blood Culture - Preliminary NO GROWTH IN 1 DAY Resulted Radiology Last Impressions Chest X-Ray 04/20/17 1355 Signed Impressions: Service Date/Time: Thursday, April 20, 2017 14:31 - CONCLUSION: No acute disease. Reuben Ron MD Lower Extremity CT 04/20/17 0000 Signed Impressions: Service Date/Time: Thursday, April 20, 2017 15:08 - CONCLUSION: 1. There is diffuse nonspecific edema throughout the subcutaneous soft tissues along the medial aspect of the right thigh. 2. Small focal fluid collection in the upper medial thigh measuring 2.2 x 1.3 cm suggestive of a small soft tissue abscess. Reuben Ron MD Cardiovascular: Regular Lungs: Clear Abdomen: Non-distended, Non-tender Extremities: Other (see below ) Narrative Exam RIGHT leg---medial thigh with moderate area of induration; tender to palpation; skin with mild erythema A/P Problem List: (1) Cellulitis of right thigh ICD Codes: L03.115 - Cellulitis of right lower limb Status: Acute (2) Abscess of right thigh ICD Codes: L02.415 - Cutaneous abscess of right lower limb Status: Acute (3) IV drug user ICD Codes: F19.90 - Other psychoactive substance use, unspecified, uncomplicated Status: Acute Assessment and Plan 31 year old female with hx of IVDA with RIGHT leg pain--cellulitis vs abscess -Continue antibiotics -Regular diet; NPO after MN for possible I&D in OR if she does not improve -Obtain consents Attending Statement PROGRESS NOTE FOR SURGICAL ATTENDING, DR. STEF DEMPSEY I agree with above assessment and plan. The exam, history, and the medical decision-making described in the above note were completed with the assistance of the mid-level provider. I reviewed and agree with the findings presented. I attest that I had a [id number] encounter with the patient on the same day, and personally performed and documented my assessment and findings in the medical record. The following services were provided during this hospital visit: Chart data review, vital sign assessments/reviewing monitor data Review of consultations notes if present. Medication orders/review and/or management Ordering and/or reviewing lab tests Ordering and/or interpreting/reviewing x-rays and/or diagnostic studies Care of the patient and discussion of the patient with the care team Documentation time To help prompt me to consider important information that might be impacting today's encounter and assessment, information from prior notes written by myself or my colleagues may have been "brought forward/copy and pasted" into today's note. Marizol Tiwari Apr 21, 2017 13:01 Stef Dempsey MD Apr 21, 2017 14:30
[2017-04-21] MEDS ORDERED: PHARMACY ORDERED LAB ONE (15:45)
[2017-04-21 16:02] LABS: HEMOGLOBIN A1a 1.1 %; HEMOGLOBIN A1b 1.5 %; HEMOGLOBIN Ao 86.5 %; HEMOGLOBIN LA1C 2.2 %; HEMOGLOBIN P3 3.4 %
--- NOTE | 2017-04-21 20:34 | EKG ---
Date Performed: 04/20/2017 Time Performed: 14:36:35 PTAGE: 31 years EKG: SINUS TACHYCARDIA WITH SHORT MO INTERVAL NONSPECIFIC T-WAVE ABNORMALITY ABNORMAL RHYTHM ECG NO PREVIOUS TRACING HEAVY BASELINE ARTIFACT WOULD RECOMMEND REPEAT EKG TRACING. DOCTOR: Dat Robin Interpretating Date/Time 04/21/2017 20:33:29
[2017-04-21] MEDS: ZOLPIDEM TARTRATE 5 MG TAB PO PRN (20:51)
[2017-04-22] VITALS (8 sets, daily range): BP systolic 89–107; BP diastolic 50–61; PULSE 77–99; RESP 16–21; TEMP 96.9–99.9; O2SAT 92–99
[2017-04-22] MEDS: SODIUM CHLOR 0.9% 1000 ML INJ 1,000 ML IV SCH ×3 (00:26→16:26)
[2017-04-22] MEDS ORDERED: MORPHINE SULFATE 2 MG/ML INJ IM PRN (00:30)
[2017-04-22] MEDS ORDERED: LACTATED RINGER'S 1000 ML IV PRN (00:45)
[2017-04-22] MEDS ORDERED: SODIUM CHLORID 0.9% 500 ML IV PRN (00:45)
[2017-04-22] MEDS: CHLORHEXIDINE GLUCONATE 2 % 1 PACK (2 CLOTHS) TOP SCH ×2 (04:00→22:56)
[2017-04-22] MEDS: PIPERACIL-TAZO 4.5 GM PREMIX 100 ML IV SCH ×5 (05:10→23:26)
[2017-04-22] MEDS: DOCUSATE SODIUM 50 MG/SENNA 8.6 MG TAB PO SCH ×2 (08:03→22:51)
[2017-04-22] MEDS: FOLIC ACID 1 MG TAB PO SCH (08:03)
[2017-04-22] MEDS: THIAMINE HCL 100 MG TAB PO SCH (08:03)
[2017-04-22] MEDS: oxyCODONE/ACETAMINOPHEN 10 MG/325 MG TAB PO PRN ×2 (08:03→22:54)
[2017-04-22] MEDS: MULTIVITAMIN TAB PO SCH (08:03)
[2017-04-22] MEDS: NICOTINE 14 MG/24 HR PATCH T-DERMAL SCH (08:04)
[2017-04-22] MEDS: SODIUM CHLORIDE 0.9% FLUSH 10 ML FLUSH IV FLUSH SCH ×2 (08:04→22:55)
[2017-04-22] MEDS: VANCOMYCIN 500 MG/NS 100 ML IV SCH ×8 (08:04→23:30)
[2017-04-22] MEDS: REMOVE OLD PATCH T-DERMAL SCH (08:05)
[2017-04-22] MEDS: MORPHINE SULFATE 4 MG/ML INJ IV PUSH PRN (09:00)
--- NOTE | 2017-04-22 11:16 | HHI.FF ---
Face to Face Verification Diagnosis: (1) Cellulitis of right thigh (2) Abscess of right thigh Home Health Nursing Order: Medical education Signs/symptoms of disease process Medication education-adverse effect Wound care and dressing changes Nursing assessment with vital signs Instructions: management of Vacuum, Wound Care. I have seen patient Dot Sosa on 04/22/17. My clinical findings support the need for the requested home health care services because: Ltd mobility - disease progression I certify that my clinical findings support that this patient is homebound because: Unsafe to leave home unassisted Orlin Owusu MD Apr 22, 2017 11:15 am
[2017-04-22] MEDS ORDERED: ACETAMINOPHEN 1000 MG/100 ML 100 ML IV ONE (11:58)
[2017-04-22] MEDS ORDERED: LIDOCAINE HCL 1% PF 5 ML SYRINGE OTHER ONE (12:00)
[2017-04-22] MEDS ORDERED: PROPOFOL 200 MG/20 ML AMP IV ONE (12:00)
[2017-04-22] MEDS ORDERED: MIDAZOLAM HCL 2 MG/2 ML VIAL IV ONE (12:00)
[2017-04-22] MEDS ORDERED: DO NOT ADM ANY ANTICOAGULANT DRUGS PRN (12:54)
--- NOTE | 2017-04-22 13:05 | MP ---
cc: STEF CAMARILLO M.D. DATE OF PROCEDURE 04/22/2017 PREOPERATIVE DIAGNOSIS Right inner upper medial thigh abscess, 8 x 10 cm. POSTOPERATIVE DIAGNOSIS Right inner upper medial thigh abscess, 8 x 10 cm. PROCEDURE Incision and drainage, irrigation and debridement right inner thigh abscess with packing of Iodoform gauze. ANESTHESIA General. SURGEON Dr. Camarillo. INDICATIONS This is a pleasant 31-year-old female who developed an abscess resistant to antibiotic therapy. Plans were made for wide drainage. PROCEDURE The patient was taken to the operating room, placed in supine position. After anesthesia her right leg placed and frog-leg position. The abscess cavity measures 10 x 8 cm. We make a linear incision directed in the vertical fashion, down through the deep subcutaneous tissue. About 15-20 cc of purulent current material returns. This is irrigated. Some necrotic tissue is debrided both sharply and bluntly using sharp scissors and blunt sponges. We then cauterize inflamed tissue to assure hemostasis. No other loculations were noted. She does have a woody appearance of her adipose tissue consistent with probable MRSA infection. After this is done we then just pack it with 1-inch Iodoform gauze and place some more Marcaine in there for postop pain control. Sterile bandage applied. The patient tolerated the procedure well had no immediate postop complication. Stef Camarillo MD JDB/SSB /12:45 PM /12:50 PM
[2017-04-22] MEDS: oxyCODONE/ACETAMINOPHEN 5 MG/325 MG TAB PO PRN (16:45)
[2017-04-22] MEDS ORDERED: MORPHINE SULFATE 2 MG/ML INJ IV PUSH PRN (16:45)
--- NOTE | 2017-04-22 16:46 | HHI.PR ---
Subjective Remarks Patient is a 31-year-old female. Who presented to the hospital with an abscess/ area of large swelling with erythema and tenderness in the right upper thigh almost groin area. With chills and low-grade fever. Patient has a history of IV drug abuse with heroin. She states this has been developing over the past week. Denies any drainage yet. Denies any nausea vomiting shortness of breath or cough. She denies any chest pain or abdominal pain. She denies any numbness or tingling in the right leg denies any vaginal or urinary symptoms denies that she is as she is currently on her period patient is noted to have low-grade temperatures and tachycardia. She has no known drug allergies. Is currently not taking any medications other than her when that she shooting up Has a history of what sounds like probably MRSA and abscesses from shooting up heroin 04/21: Seen in his bedroom in the presence of nurse, stable awaiting final recommendations by General Surgery for probable I and D tomorrow. 04/22: Stable in her bedroom status post I and D, asked for IV pain medicine due to increased pain after surgery will add IV pain medicine today and follow, no nausea, vomit or diarrhea Objective Vital Signs Date Time Temp Pulse Resp B/P (MAP) Pulse Ox O2 Delivery O2 Flow Rate FiO2 04/22/17 15:45 75 14 90/54 (66) 100 Room Air 04/22/17 15:30 74 14 92/55 (67) 100 Nasal Cannula 2 04/22/17 15:15 71 14 91/56 (68) 100 Nasal Cannula 2 04/22/17 15:00 69 14 89/55 (66) 100 Nasal Cannula 2 04/22/17 14:45 68 14 88/54 (65) 100 Nasal Cannula 2 04/22/17 14:30 71 14 91/52 (65) 100 Nasal Cannula 2 04/22/17 14:15 74 14 88/51 (63) 100 Nasal Cannula 2 04/22/17 14:00 71 14 88/50 (63) 100 Nasal Cannula 2 04/22/17 13:45 70 14 87/56 (66) 100 Nasal Cannula 2 04/22/17 13:30 70 14 89/55 (66) 100 Nasal Cannula 2 04/22/17 13:15 72 14 91/55 (67) 100 Nasal Cannula 2 04/22/17 13:00 68 14 92/52 (65) 100 Nasal Cannula 2 04/22/17 12:52 98.0 79 14 89/53 (65) 95 Nasal Cannula 4 04/22/17 09:03 16 04/22/17 09:03 16 04/22/17 08:00 99.9 99 21 97/56 (70) 97 04/22/17 08:00 99 04/22/17 04:00 98.6 94 16 92/50 (64) 96 04/22/17 01:20 77 04/22/17 00:00 96.9 79 16 89/54 (66) 99 04/21/17 20:00 98.0 88 16 105/66 (79) 100 I/O 04/21/17 04/21/17 04/21/17 04/22/17 04/22/17 04/22/17 07:00 15:00 23:00 07:00 15:00 23:00 Intake Total 1880 ml 340 ml 960 ml 550 ml Output Total 800 ml 5 ml Balance 1880 ml 340 ml 160 ml 545 ml Intake Oral 580 ml 240 ml 960 ml 0 ml IV Total 1300 ml 100 ml Other 550 ml Output Urine Total 800 ml Estimated Blood Loss 5 ml # Voids 3 4 # Bowel Movements 0 Result Diagram: 04/21/17 0815 04/21/17 0815 Imaging Last Impressions Chest X-Ray 04/20/17 1355 Signed Impressions: Service Date/Time: Thursday, April 20, 2017 14:31 - CONCLUSION: No acute disease. Reuben Ron MD Lower Extremity CT 04/20/17 0000 Signed Impressions: Service Date/Time: Thursday, April 20, 2017 15:08 - CONCLUSION: 1. There is diffuse nonspecific edema throughout the subcutaneous soft tissues along the medial aspect of the right thigh. 2. Small focal fluid collection in the upper medial thigh measuring 2.2 x 1.3 cm suggestive of a small soft tissue abscess. Reuben Ron MD Procedures With Diagnosis of Right inner upper medial thigh abscess, 8 x 10 cm. status post Incision and drainage, irrigation and debridement right inner thigh abscess with packing of Iodoform gauze. by Doctor Marquise 04/22/17 Other Results Laboratory Tests Test 04/20/17 14:20 04/20/17 17:57 04/21/17 08:15 04/21/17 17:14 Prothrombin Time 11.1 SEC Prothromb Time International Ratio 1.1 RATIO Activated Partial Thromboplast Time 23.1 SEC Lactic Acid Level 1.1 mmol/L Nasal Screen MRSA (PCR) MRSA DETECTED White Blood Count 7.6 TH/MM3 Red Blood Count 3.62 MIL/MM3 Hemoglobin 11.7 GM/DL Hematocrit 33.3 % Mean Corpuscular Volume 92.1 FL Mean Corpuscular Hemoglobin 32.3 PG Mean Corpuscular Hemoglobin Concent 35.0 % Red Cell Distribution Width 15.3 % Platelet Count 182 TH/MM3 Mean Platelet Volume 8.4 FL Neutrophils (%) (Auto) 79.8 % Lymphocytes (%) (Auto) 14.2 % Monocytes (%) (Auto) 5.2 % Eosinophils (%) (Auto) 0.6 % Basophils (%) (Auto) 0.2 % Neutrophils # (Auto) 6.0 TH/MM3 Lymphocytes # (Auto) 1.1 TH/MM3 Monocytes # (Auto) 0.4 TH/MM3 Eosinophils # (Auto) 0.0 TH/MM3 Basophils # (Auto) 0.0 TH/MM3 CBC Comment DIFF FINAL Differential Comment Blood Urea Nitrogen 6 MG/DL Creatinine 0.69 MG/DL Random Glucose 115 MG/DL Total Protein 6.0 GM/DL Albumin 2.4 GM/DL Calcium Level 7.7 MG/DL Phosphorus Level 3.0 MG/DL Magnesium Level 1.9 MG/DL Alkaline Phosphatase 69 U/L Aspartate Amino Transf (AST/SGOT) 38 U/L Alanine Aminotransferase (ALT/SGPT) 22 U/L Total Bilirubin 0.5 MG/DL Sodium Level 141 MEQ/L Potassium Level 3.2 MEQ/L Chloride Level 109 MEQ/L Carbon Dioxide Level 25.0 MEQ/L Anion Gap 7 MEQ/L Estimat Glomerular Filtration Rate 100 ML/MIN Hemoglobin A1c 4.9 % Free Thyroxine 1.82 NG/DL Thyroid Stimulating Hormone 3rd Gen 0.362 uIU/ML Vancomycin Level Trough 14.8 MCG/ML Objective Remarks GENERAL: No acute distress. HEAD: Atraumatic. Normocephalic. EYES: Pupils equal round and reactive. NECK: Supple, no JVD. CARDIOVASCULAR: Regular rate and rhythm without murmurs. RESPIRATORY: Clear to auscultation. Breath sounds equal bilaterally. No wheezes , rales, or rhonchi. MUSCULOSKELETAL: Came from Surgery not evaluated this area today. NEUROLOGICAL: Awake and alert. Medications and IVs Current Medications Medications (Trade) Dose Ordered Sig/Daniel Route Start Time Stop Time Status Last Admin Pharmacy Profile Note 0 ml @ 0 mls/hr UNSCH OTHER 04/20/17 16:30 Piperacillin Sod/ Tazobactam Sod 100 ml @ 200 mls/hr Q6H IV 04/21/17 00:00 04/22/17 12:42 Sodium Chloride 1,000 ml @ 125 mls/hr Q8H IV 04/20/17 16:26 04/22/17 16:26 (NS Flush) 2 ml UNSCH PRN IV FLUSH 04/20/17 16:30 (NS Flush) 2 ml BID IV FLUSH 04/20/17 21:00 04/22/17 08:04 (Tylenol) 650 mg Q4H PRN PO 04/20/17 16:30 (Zofran Inj) 4 mg Q6H PRN IVP 04/20/17 16:30 (Compazine Supp) 25 mg Q12H PRN RECTAL 04/20/17 16:30 (Ambien) 5 mg HS PRN PO 04/20/17 16:30 04/21/17 20:51 (Lovenox Inj) 40 mg Q24H SQ 04/20/17 17:00 Future Hold 04/20/17 17:07 (Tylenol) 650 mg Q6H PRN PO 04/20/17 16:30 (Percocet 5-325 Mg) 1 tab Q6H PRN PO 04/20/17 16:30 04/20/17 17:22 (Percocet 10-325 Mg) 1 tab Q6H PRN PO 04/20/17 16:30 04/22/17 08:03 (Narcan Inj) 0.4 mg UNSCH PRN IV PUSH 04/20/17 16:30 (Antionette-Colace) 1 tab BID PO 04/20/17 21:00 04/21/17 20:49 (Milk Of Magnesia Liq) 30 ml Q12H PRN PO 04/20/17 16:30 (Senokot) 17.2 mg Q12H PRN PO 04/20/17 16:30 (Dulcolax Supp) 10 mg DAILY PRN RECTAL 04/20/17 16:30 (Lactulose Liq) 30 ml DAILY PRN PO 04/20/17 16:30 (Romazicon Inj) 0.2 mg Q1M PRN IV PUSH 04/20/17 16:30 (Ativan) 1 mg Q4H PRN PO 04/20/17 16:30 (Ativan Inj) 1 mg Q4H PRN IV PUSH 04/20/17 16:30 (Ativan) 2 mg Q2H PRN PO 04/20/17 16:30 (Ativan Inj) 2 mg Q2H PRN IV PUSH 04/20/17 16:30 (Ativan Inj) 2 mg Q1H PRN IV PUSH 04/20/17 16:30 (Ativan Inj) 2 mg Q15M PRN IV PUSH 04/20/17 16:30 (Librium) 50 mg Q6H PRN PO 04/20/17 16:30 04/21/17 18:36 (Theragran) 1 tab DAILY PO 04/21/17 09:00 04/21/17 09:01 (Folate) 1 mg DAILY PO 04/21/17 09:00 04/22/17 08:03 (Vitamin B1) 100 mg DAILY PO 04/21/17 09:00 04/22/17 08:03 Miscellaneous Information 1 Q361D XX 04/20/17 16:45 (Chlorhexidine 2% Cloth) 3 pack Taper DAILY@04 TOP 04/21/17 04:00 04/17/18 03:59 04/22/17 04:00 (Chlorhexidine 2% Cloth) 3 pack UNSCH PRN TOP 04/20/17 16:45 (Habitrol 14 Mg Patch.24 Hr) 1 patch DAILY T-DERMAL 04/21/17 09:00 04/21/17 09:01 Miscellaneous Information 1 DAILY T-DERMAL 04/21/17 09:00 04/22/17 08:05 Vancomycin HCl 500 mg/Sodium Chloride 100 ml @ 200 mls/hr Q8H IV 04/21/17 00:00 04/22/17 16:31 Lactated Ringer's 1,000 ml @ 30 mls/hr Q24H PRN IV 04/22/17 00:45 04/25/17 00:44 04/22/17 11:54 Sodium Chloride 500 ml @ 30 mls/hr [id number] PRN IV 04/22/17 00:45 04/25/17 00:44 (Morphine Inj) 2 mg Q3H PRN IV PUSH 04/22/17 08:15 04/22/17 09:00 Miscellaneous Information ALL NURSING DEPARTME... UNSCH PRN .XX 04/22/17 12:54 04/23/17 12:53 (Morphine Inj) 2 mg Q3H PRN IV PUSH 04/22/17 16:45 UNV A/P Assessment and Plan 1. With Diagnosis of Right inner upper medial thigh abscess, 8 x 10 cm. status post Incision and drainage, irrigation and debridement right inner thigh abscess with packing of Iodoform gauze. by Doctor Marquise 04/22/17, continue antibiotics, following wound culture 2. Heroin abuse on CIWA protocol due to probable Withdrawal. strongly recommended to stop behavior. 3. Tobacco dependence continue Nicotine patch and strongly recommended to stop smoking 4. Electrolyte derangement replaced and following. DVT prophylaxis with SCDs. Code Status Full code Discharge Planning Once cleared by Surgery Orlin Owusu MD Apr 22, 2017 16:46
--- NOTE | 2017-04-22 17:31 | PD.WCN.NOT ---
Wound Consult Description: Consult for right groin thigh per Dr Salinas Communicated with: DANNA Tiwari Recommendation: Defer to Surgery for wet to dry BID dressing change orders currently in place. Additional Information: Patient not seen by wound care. Elma Smith [facility] Apr 22, 2017 17:31
[2017-04-23] VITALS (8 sets, daily range): BP systolic 92–121; BP diastolic 56–73; PULSE 83–100; RESP 15–18; TEMP 97.9–100.3; O2SAT 92–96
[2017-04-23] MEDS: SODIUM CHLOR 0.9% 1000 ML INJ 1,000 ML IV SCH ×2 (00:26→08:34)
[2017-04-23] MEDS: MORPHINE SULFATE 4 MG/ML INJ IV PUSH PRN ×2 (00:59→04:50)
[2017-04-23] MEDS: PIPERACIL-TAZO 4.5 GM PREMIX 100 ML IV SCH ×4 (04:53→23:39)
[2017-04-23] MEDS: REMOVE OLD PATCH T-DERMAL SCH (08:36)
[2017-04-23] MEDS: FOLIC ACID 1 MG TAB PO SCH (08:36)
[2017-04-23] MEDS: NICOTINE 14 MG/24 HR PATCH T-DERMAL SCH (08:36)
[2017-04-23] MEDS: MULTIVITAMIN TAB PO SCH (08:36)
[2017-04-23] MEDS: DOCUSATE SODIUM 50 MG/SENNA 8.6 MG TAB PO SCH ×2 (08:36→21:00)
[2017-04-23] MEDS: THIAMINE HCL 100 MG TAB PO SCH (08:36)
[2017-04-23] MEDS: VANCOMYCIN 500 MG/NS 100 ML IV SCH ×6 (08:37→23:39)
[2017-04-23] MEDS: SODIUM CHLORIDE 0.9% FLUSH 10 ML FLUSH IV FLUSH SCH ×2 (08:37→21:48)
[2017-04-23] MEDS: MORPHINE SULFATE 2 MG/ML INJ IV PUSH PRN ×4 (11:00→21:42)
--- NOTE | 2017-04-23 11:52 | HHI.PR ---
Subjective Remarks Patient is a 31-year-old female. Who presented to the hospital with an abscess/ area of large swelling with erythema and tenderness in the right upper thigh almost groin area. With chills and low-grade fever. Patient has a history of IV drug abuse with heroin. She states this has been developing over the past week. Denies any drainage yet. Denies any nausea vomiting shortness of breath or cough. She denies any chest pain or abdominal pain. She denies any numbness or tingling in the right leg denies any vaginal or urinary symptoms denies that she is as she is currently on her period patient is noted to have low-grade temperatures and tachycardia. She has no known drug allergies. Is currently not taking any medications other than her when that she shooting up Has a history of what sounds like probably MRSA and abscesses from shooting up heroin 04/21: Seen in his bedroom in the presence of nurse, stable awaiting final recommendations by General Surgery for probable I and D tomorrow. 04/22: Stable in her bedroom status post I and D, asked for IV pain medicine due to increased pain after surgery will add IV pain medicine today and follow. 04/23: seen in her bedroom, and discussed with chemical operations specialist [employer]WORK ENGINEER, will continue dressing changes probable until next Friday and if tolerates without IV pain medicine okay to go home on [facility] for wound care. awaiting also wound culture to rule out MRSA, seen in the presence of nurse Miss Holly salvador. no nausea, vomit or diarrhea. Objective Vital Signs Date Time Temp Pulse Resp B/P (MAP) Pulse Ox O2 Delivery O2 Flow Rate FiO2 04/23/17 11:01 96 04/23/17 08:37 86 04/23/17 08:00 100.3 88 18 107/62 (77) 96 04/23/17 04:00 99.2 96 16 92/60 (71) 92 04/23/17 00:00 99.2 96 16 95/56 (69) 92 04/22/17 22:15 96 04/22/17 20:00 97.9 90 16 92/53 (66) 92 04/22/17 20:00 78 04/22/17 17:03 96 04/22/17 16:00 97.2 90 20 107/61 (76) 96 04/22/17 15:45 75 14 90/54 (66) 100 Room Air 04/22/17 15:30 74 14 92/55 (67) 100 Nasal Cannula 2 04/22/17 15:15 71 14 91/56 (68) 100 Nasal Cannula 2 04/22/17 15:00 69 14 89/55 (66) 100 Nasal Cannula 2 04/22/17 14:45 68 14 88/54 (65) 100 Nasal Cannula 2 04/22/17 14:30 71 14 91/52 (65) 100 Nasal Cannula 2 04/22/17 14:15 74 14 88/51 (63) 100 Nasal Cannula 2 04/22/17 14:00 71 14 88/50 (63) 100 Nasal Cannula 2 04/22/17 13:45 70 14 87/56 (66) 100 Nasal Cannula 2 04/22/17 13:30 70 14 89/55 (66) 100 Nasal Cannula 2 04/22/17 13:15 72 14 91/55 (67) 100 Nasal Cannula 2 04/22/17 13:00 68 14 92/52 (65) 100 Nasal Cannula 2 04/22/17 12:52 98.0 79 14 89/53 (65) 95 Nasal Cannula 4 I/O 04/22/17 04/22/17 04/22/17 04/23/17 04/23/17 04/23/17 07:00 15:00 23:00 07:00 15:00 23:00 Intake Total 550 ml 1805 ml 100 ml 200 ml Output Total 5 ml 500 ml Balance 545 ml 1305 ml 100 ml 200 ml Intake Oral 0 ml 480 ml IV Total 1325 ml 100 ml 200 ml Other 550 ml Output Urine Total 500 ml Estimated Blood Loss 5 ml # Voids 4 1 # Bowel Movements 0 Result Diagram: 04/21/17 0815 04/21/17 0815 Imaging Last Impressions Chest X-Ray 04/20/17 1355 Signed Impressions: Service Date/Time: Thursday, April 20, 2017 14:31 - CONCLUSION: No acute disease. Reuben Ron MD Lower Extremity CT 04/20/17 0000 Signed Impressions: Service Date/Time: Thursday, April 20, 2017 15:08 - CONCLUSION: 1. There is diffuse nonspecific edema throughout the subcutaneous soft tissues along the medial aspect of the right thigh. 2. Small focal fluid collection in the upper medial thigh measuring 2.2 x 1.3 cm suggestive of a small soft tissue abscess. Reuben Ron MD Procedures With Diagnosis of Right inner upper medial thigh abscess, 8 x 10 cm. status post Incision and drainage, irrigation and debridement right inner thigh abscess with packing of Iodoform gauze. by Doctor Marquise 04/22/17 Other Results Laboratory Tests Test 04/20/17 14:20 04/20/17 17:57 04/21/17 08:15 04/21/17 17:14 Prothrombin Time 11.1 SEC Prothromb Time International Ratio 1.1 RATIO Activated Partial Thromboplast Time 23.1 SEC Lactic Acid Level 1.1 mmol/L Nasal Screen MRSA (PCR) MRSA DETECTED White Blood Count 7.6 TH/MM3 Red Blood Count 3.62 MIL/MM3 Hemoglobin 11.7 GM/DL Hematocrit 33.3 % Mean Corpuscular Volume 92.1 FL Mean Corpuscular Hemoglobin 32.3 PG Mean Corpuscular Hemoglobin Concent 35.0 % Red Cell Distribution Width 15.3 % Platelet Count 182 TH/MM3 Mean Platelet Volume 8.4 FL Neutrophils (%) (Auto) 79.8 % Lymphocytes (%) (Auto) 14.2 % Monocytes (%) (Auto) 5.2 % Eosinophils (%) (Auto) 0.6 % Basophils (%) (Auto) 0.2 % Neutrophils # (Auto) 6.0 TH/MM3 Lymphocytes # (Auto) 1.1 TH/MM3 Monocytes # (Auto) 0.4 TH/MM3 Eosinophils # (Auto) 0.0 TH/MM3 Basophils # (Auto) 0.0 TH/MM3 CBC Comment DIFF FINAL Differential Comment Blood Urea Nitrogen 6 MG/DL Creatinine 0.69 MG/DL Random Glucose 115 MG/DL Total Protein 6.0 GM/DL Albumin 2.4 GM/DL Calcium Level 7.7 MG/DL Phosphorus Level 3.0 MG/DL Magnesium Level 1.9 MG/DL Alkaline Phosphatase 69 U/L Aspartate Amino Transf (AST/SGOT) 38 U/L Alanine Aminotransferase (ALT/SGPT) 22 U/L Total Bilirubin 0.5 MG/DL Sodium Level 141 MEQ/L Potassium Level 3.2 MEQ/L Chloride Level 109 MEQ/L Carbon Dioxide Level 25.0 MEQ/L Anion Gap 7 MEQ/L Estimat Glomerular Filtration Rate 100 ML/MIN Hemoglobin A1c 4.9 % Free Thyroxine 1.82 NG/DL Thyroid Stimulating Hormone 3rd Gen 0.362 uIU/ML Vancomycin Level Trough 14.8 MCG/ML Objective Remarks GENERAL: No acute distress. HEAD: Atraumatic. Normocephalic. EYES: Pupils equal round and reactive. NECK: Supple, no JVD. CARDIOVASCULAR: Regular rate and rhythm without murmurs. RESPIRATORY: Clear to auscultation. Breath sounds equal bilaterally. No wheezes , rales, or rhonchi. MUSCULOSKELETAL: Came from Surgery not evaluated this area today. NEUROLOGICAL: Awake and alert. Medications and IVs Current Medications Medications (Trade) Dose Ordered Sig/Daniel Route Start Time Stop Time Status Last Admin Pharmacy Profile Note 0 ml @ 0 mls/hr UNSCH OTHER 04/20/17 16:30 Piperacillin Sod/ Tazobactam Sod 100 ml @ 200 mls/hr Q6H IV 04/21/17 00:00 04/23/17 11:00 Sodium Chloride 1,000 ml @ 125 mls/hr Q8H IV 04/20/17 16:26 04/23/17 08:34 (NS Flush) 2 ml UNSCH PRN IV FLUSH 04/20/17 16:30 (NS Flush) 2 ml BID IV FLUSH 04/20/17 21:00 04/22/17 22:55 (Tylenol) 650 mg Q4H PRN PO 04/20/17 16:30 (Zofran Inj) 4 mg Q6H PRN IVP 04/20/17 16:30 (Compazine Supp) 25 mg Q12H PRN RECTAL 04/20/17 16:30 (Ambien) 5 mg HS PRN PO 04/20/17 16:30 04/21/17 20:51 (Lovenox Inj) 40 mg Q24H SQ 04/20/17 17:00 Future Hold 04/20/17 17:07 (Tylenol) 650 mg Q6H PRN PO 04/20/17 16:30 (Percocet 5-325 Mg) 1 tab Q6H PRN PO 04/20/17 16:30 04/22/17 16:45 (Percocet 10-325 Mg) 1 tab Q6H PRN PO 04/20/17 16:30 04/22/17 22:54 (Narcan Inj) 0.4 mg UNSCH PRN IV PUSH 04/20/17 16:30 (Antionette-Colace) 1 tab BID PO 04/20/17 21:00 04/23/17 08:36 (Milk Of Magnesia Liq) 30 ml Q12H PRN PO 04/20/17 16:30 (Senokot) 17.2 mg Q12H PRN PO 04/20/17 16:30 (Dulcolax Supp) 10 mg DAILY PRN RECTAL 04/20/17 16:30 (Lactulose Liq) 30 ml DAILY PRN PO 04/20/17 16:30 (Romazicon Inj) 0.2 mg Q1M PRN IV PUSH 04/20/17 16:30 (Librium) 50 mg Q6H PRN PO 04/20/17 16:30 04/21/17 18:36 (Theragran) 1 tab DAILY PO 04/21/17 09:00 04/23/17 08:36 (Folate) 1 mg DAILY PO 04/21/17 09:00 04/23/17 08:36 (Vitamin B1) 100 mg DAILY PO 04/21/17 09:00 04/23/17 08:36 Miscellaneous Information 1 Q361D XX 04/20/17 16:45 (Chlorhexidine 2% Cloth) 3 pack Taper DAILY@04 TOP 04/21/17 04:00 04/17/18 03:59 04/22/17 04:00 (Chlorhexidine 2% Cloth) 3 pack UNSCH PRN TOP 04/20/17 16:45 (Habitrol 14 Mg Patch.24 Hr) 1 patch DAILY T-DERMAL 04/21/17 09:00 04/23/17 08:36 Miscellaneous Information 1 DAILY T-DERMAL 04/21/17 09:00 04/23/17 08:36 Vancomycin HCl 500 mg/Sodium Chloride 100 ml @ 200 mls/hr Q8H IV 04/21/17 00:00 04/23/17 08:37 Lactated Ringer's 1,000 ml @ 30 mls/hr Q24H PRN IV 04/22/17 00:45 04/25/17 00:44 04/22/17 11:54 Sodium Chloride 500 ml @ 30 mls/hr [id number] PRN IV 04/22/17 00:45 04/25/17 00:44 Miscellaneous Information ALL NURSING DEPARTME... UNSCH PRN .XX 04/22/17 12:54 04/23/17 12:53 (Morphine Inj) 2 mg Q3H PRN IV PUSH 04/23/17 10:45 04/23/17 11:00 A/P Assessment and Plan 1. With Diagnosis of Right inner upper medial thigh abscess, 8 x 10 cm. status post Incision and drainage, irrigation and debridement right inner thigh abscess with packing of Iodoform gauze. by Doctor Marquise 04/22/17, continue antibiotics, following wound culture, discussed with General chemical operations specialist [employer] NETWORK ENGINEER and recommended to continue dressing changes in house until the patient tolerates it without IV pain medicine. probable Next Friday. 04/25/17. 2. Heroin abuse on CIWA protocol due to probable Withdrawal. strongly recommended to stop behavior. 3. Tobacco dependence continue Nicotine patch and strongly recommended to stop smoking 4. Electrolyte derangement replaced, not yet laboratory for today. DVT prophylaxis with SCDs. Code Status Full code Discharge Planning Once cleared by Surgery Orlin Owusu MD Apr 23, 2017 11:52
--- NOTE | 2017-04-23 13:09 | HHI.PR ---
cc: Stef Dempsey MD Subjective Subjective Notes DAILY PROGRESS NOTE FOR SURGICAL ATTENDING, DR. STEF DEMPSEY Resting in bed Pre-medicated with IV morphine for dressing change Objective Vitals/I&O Vital Signs Date Time Temp Pulse Resp B/P (MAP) Pulse Ox O2 Delivery O2 Flow Rate FiO2 04/23/17 12:00 97.9 83 15 104/71 (82) 94 04/22/17 15:45 Room Air 04/22/17 15:30 2 04/21/17 00:39 21 Labs Date/Time Source Procedure Growth Status 04/20/17 14:20 Blood Peripheral Aerobic Blood Culture - Preliminary NO GROWTH IN 3 DAYS Resulted 04/20/17 14:20 Blood Peripheral Anaerobic Blood Culture - Preliminary NO GROWTH IN 3 DAYS Resulted 04/22/17 12:41 Wound Thigh Gram Stain - Final Resulted 04/22/17 12:41 Wound Thigh Wound Culture Pending Resulted Radiology Last Impressions Chest X-Ray 04/20/17 1355 Signed Impressions: Service Date/Time: Thursday, April 20, 2017 14:31 - CONCLUSION: No acute disease. Reuben Ron MD Lower Extremity CT 04/20/17 0000 Signed Impressions: Service Date/Time: Thursday, April 20, 2017 15:08 - CONCLUSION: 1. There is diffuse nonspecific edema throughout the subcutaneous soft tissues along the medial aspect of the right thigh. 2. Small focal fluid collection in the upper medial thigh measuring 2.2 x 1.3 cm suggestive of a small soft tissue abscess. Reuben Ron MD Cardiovascular: Regular Lungs: Clear Abdomen: Non-distended, Non-tender Extremities: Other (see below ) Narrative Exam RIGHT leg---s/p I&D of abscess---packing removed--- wound bed is beefy red with some minimal bleeding; repacked with moist 4x4 gauze; ABD applied and secured with paper tape A/P Problem List: (1) Cellulitis of right thigh ICD Codes: L03.115 - Cellulitis of right lower limb Status: Acute (2) Abscess of right thigh ICD Codes: L02.415 - Cutaneous abscess of right lower limb Status: Acute (3) IV drug user ICD Codes: F19.90 - Other psychoactive substance use, unspecified, uncomplicated Status: Acute Assessment and Plan 31 year old female with hx of IVDA with RIGHT leg pain with abscess; POD1 I&D of RIGHT leg -Continue antibiotics -Regular diet -DC IVF -Remove telemetry -Continue dressing changes---okay to shower inbetween dressing changes Attending Statement NOTE FOR SURGICAL ATTENDING, DR. STEF DEMPSEY I agree with above assessment and plan. The exam, history, and the medical decision-making described in the above note were completed with the assistance of the mid-level provider. I reviewed and agree with the findings presented. I attest that I had a evio-ud-nexu encounter with the patient on the same day, and personally performed and documented my assessment and findings in the medical record. The following services were provided during this hospital visit: Chart data review, vital sign assessments/reviewing monitor data Review of consultations notes if present. Medication orders/review and/or management Ordering and/or reviewing lab tests Ordering and/or interpreting/reviewing x-rays and/or diagnostic studies Care of the patient and discussion of the patient with the care team Documentation time To help prompt me to consider important information that might be impacting today's encounter and assessment, information from prior notes written by myself or my colleagues may have been "brought forward/copy and pasted" into today's note. Marizol Tiwari Apr 23, 2017 13:09 Stef Dempsey MD Apr 23, 2017 15:58
[2017-04-23] MEDS: ZOLPIDEM TARTRATE 5 MG TAB PO PRN (23:38)
[2017-04-23] MEDS: CHLORHEXIDINE GLUCONATE 2 % 1 PACK (2 CLOTHS) TOP SCH (23:43)
[2017-04-24 00:29] VITALS: BP 120/73; PULSE 70; RESP 17; TEMP 99.4; O2SAT 98
[2017-04-24] MEDS: MORPHINE SULFATE 2 MG/ML INJ IV PUSH PRN ×2 (00:50→04:52)
[2017-04-24] MEDS: PIPERACIL-TAZO 4.5 GM PREMIX 100 ML IV SCH ×2 (04:52→13:43)
[2017-04-24 08:00] VITALS: BP 100/56; PULSE 78; RESP 16; TEMP 97.9; O2SAT 97
[2017-04-24] MEDS: MULTIVITAMIN TAB PO SCH ×2 (09:00→10:39)
[2017-04-24] MEDS: FOLIC ACID 1 MG TAB PO SCH ×2 (09:00→10:39)
[2017-04-24] MEDS: THIAMINE HCL 100 MG TAB PO SCH ×2 (09:00→10:39)
[2017-04-24] MEDS: REMOVE OLD PATCH T-DERMAL SCH (09:00)
[2017-04-24] MEDS: DOCUSATE SODIUM 50 MG/SENNA 8.6 MG TAB PO SCH ×3 (09:00→20:42)
--- NOTE | 2017-04-24 09:58 | HHI.FF ---
Face to Face Verification Diagnosis: (1) Cellulitis of right thigh (2) Abscess of right thigh Home Health Nursing Order: Wound care and dressing changes Instructions: RIGHT thigh--- 4x4 moist gauze --- cover with ABD pad and secure with paper tape ; change BID---once daily by nursing staff and once by patient/family; for family/patient teaching; okay to shower inbetween dressing changes ---remove packing prior I have seen patient Dot Sosa on 04/24/17. My clinical findings support the need for the requested home health care services because: Limited ability to care for self High risk of falls I certify that my clinical findings support that this patient is homebound because: Post-op weakness Marizol Tiwari MECH[employer]ICAL ENGINEERING TEACHER Apr 24, 2017 09:57
[2017-04-24] MEDS: VANCOMYCIN 500 MG/NS 100 ML IV SCH ×6 (10:39→22:42)
[2017-04-24] MEDS: NICOTINE 14 MG/24 HR PATCH T-DERMAL SCH (10:40)
[2017-04-24] MEDS: SODIUM CHLORIDE 0.9% FLUSH 10 ML FLUSH IV FLUSH SCH ×2 (10:41→22:24)
[2017-04-24 12:00] VITALS: BP 99/54; PULSE 74; RESP 16; TEMP 97.8; O2SAT 98
[2017-04-24] MEDS: HYDROmorphone HCL 4 MG TAB PO PRN ×3 (13:43→23:44)
[2017-04-24] MEDS ORDERED: MORPHINE SULFATE 2 MG/ML INJ IV PUSH SCH (14:45)
--- NOTE | 2017-04-24 15:10 | HHI.PR ---
Subjective Remarks Patient is a 31-year-old female. Who presented to the hospital with an abscess/ area of large swelling with erythema and tenderness in the right upper thigh almost groin area. With chills and low-grade fever. Patient has a history of IV drug abuse with heroin. She states this has been developing over the past week. Denies any drainage yet. Denies any nausea vomiting shortness of breath or cough. She denies any chest pain or abdominal pain. She denies any numbness or tingling in the right leg denies any vaginal or urinary symptoms denies that she is as she is currently on her period patient is noted to have low-grade temperatures and tachycardia. She has no known drug allergies. Is currently not taking any medications other than her when that she shooting up Has a history of what sounds like probably MRSA and abscesses from shooting up heroin 04/21: Seen in his bedroom in the presence of nurse, stable awaiting final recommendations by General Surgery for probable I and D tomorrow. 04/22: Stable in her bedroom status post I and D, asked for IV pain medicine due to increased pain after surgery will add IV pain medicine today and follow. 04/23: seen in her bedroom, and discussed with scalp treatment specialist MANAGER TRANSPORT, will continue dressing changes probable until next Friday and if tolerates without IV pain medicine okay to go home on [facility] for wound care. awaiting also wound culture to rule out MRSA, seen in the presence of nurse Miss Holly salvador. 04/24: stable in her bedroom, no complain, medicines changed to by mouth, consulted Doctor Franky for pain management, will be discharge soon when pain controlled by Pain medicines, and may be able to be discharge on NSAIDs, no Narcotics on discharge, discussed with General Surgery's MANAGER TRANSPORT Miss Morganhryn Bozena Tiwari no nausea, vomit or diarrhea, Objective Vital Signs Date Time Temp Pulse Resp B/P (MAP) Pulse Ox O2 Delivery O2 Flow Rate FiO2 04/24/17 12:00 97.8 74 16 99/54 (69) 98 04/24/17 08:00 97.9 78 16 100/56 (71) 97 04/24/17 00:29 99.4 70 17 120/73 (89) 98 04/23/17 20:29 98.1 100 18 121/73 (89) 95 04/23/17 16:00 98.6 91 16 106/68 (81) 94 I/O 04/23/17 04/23/17 04/23/17 04/24/17 04/24/17 04/24/17 07:00 15:00 23:00 07:00 15:00 23:00 Intake Total 100 ml 700 ml 550 ml 1080 ml Balance 100 ml 700 ml 550 ml 1080 ml Intake Oral 550 ml 780 ml IV Total 100 ml 700 ml 300 ml # Voids 1 7 4 # Bowel Movements 0 0 Result Diagram: 04/21/17 0815 04/21/17 0815 Imaging Last Impressions Chest X-Ray 04/20/17 1355 Signed Impressions: Service Date/Time: Thursday, April 20, 2017 14:31 - CONCLUSION: No acute disease. Reuben Ron MD Lower Extremity CT 04/20/17 0000 Signed Impressions: Service Date/Time: Thursday, April 20, 2017 15:08 - CONCLUSION: 1. There is diffuse nonspecific edema throughout the subcutaneous soft tissues along the medial aspect of the right thigh. 2. Small focal fluid collection in the upper medial thigh measuring 2.2 x 1.3 cm suggestive of a small soft tissue abscess. Reuben Ron MD Procedures With Diagnosis of Right inner upper medial thigh abscess, 8 x 10 cm. status post Incision and drainage, irrigation and debridement right inner thigh abscess with packing of Iodoform gauze. by Doctor Marquise 04/22/17 Other Results Laboratory Tests Test 04/20/17 14:20 04/20/17 17:57 04/21/17 08:15 04/21/17 17:14 Prothrombin Time 11.1 SEC Prothromb Time International Ratio 1.1 RATIO Activated Partial Thromboplast Time 23.1 SEC Lactic Acid Level 1.1 mmol/L Nasal Screen MRSA (PCR) MRSA DETECTED White Blood Count 7.6 TH/MM3 Red Blood Count 3.62 MIL/MM3 Hemoglobin 11.7 GM/DL Hematocrit 33.3 % Mean Corpuscular Volume 92.1 FL Mean Corpuscular Hemoglobin 32.3 PG Mean Corpuscular Hemoglobin Concent 35.0 % Red Cell Distribution Width 15.3 % Platelet Count 182 TH/MM3 Mean Platelet Volume 8.4 FL Neutrophils (%) (Auto) 79.8 % Lymphocytes (%) (Auto) 14.2 % Monocytes (%) (Auto) 5.2 % Eosinophils (%) (Auto) 0.6 % Basophils (%) (Auto) 0.2 % Neutrophils # (Auto) 6.0 TH/MM3 Lymphocytes # (Auto) 1.1 TH/MM3 Monocytes # (Auto) 0.4 TH/MM3 Eosinophils # (Auto) 0.0 TH/MM3 Basophils # (Auto) 0.0 TH/MM3 CBC Comment DIFF FINAL Differential Comment Blood Urea Nitrogen 6 MG/DL Creatinine 0.69 MG/DL Random Glucose 115 MG/DL Total Protein 6.0 GM/DL Albumin 2.4 GM/DL Calcium Level 7.7 MG/DL Phosphorus Level 3.0 MG/DL Magnesium Level 1.9 MG/DL Alkaline Phosphatase 69 U/L Aspartate Amino Transf (AST/SGOT) 38 U/L Alanine Aminotransferase (ALT/SGPT) 22 U/L Total Bilirubin 0.5 MG/DL Sodium Level 141 MEQ/L Potassium Level 3.2 MEQ/L Chloride Level 109 MEQ/L Carbon Dioxide Level 25.0 MEQ/L Anion Gap 7 MEQ/L Estimat Glomerular Filtration Rate 100 ML/MIN Hemoglobin A1c 4.9 % Free Thyroxine 1.82 NG/DL Thyroid Stimulating Hormone 3rd Gen 0.362 uIU/ML Vancomycin Level Trough 14.8 MCG/ML Objective Remarks GENERAL: No acute distress. HEAD: Atraumatic. Normocephalic. EYES: Pupils equal round and reactive. NECK: Supple, no JVD. CARDIOVASCULAR: Regular rate and rhythm without murmurs. RESPIRATORY: Clear to auscultation. Breath sounds equal bilaterally. No wheezes , rales, or rhonchi. MUSCULOSKELETAL: Came from Surgery not evaluated this area today. NEUROLOGICAL: Awake and alert. Medications and IVs Current Medications Medications (Trade) Dose Ordered Sig/Daniel Route Start Time Stop Time Status Last Admin Pharmacy Profile Note 0 ml @ 0 mls/hr UNSCH OTHER 04/20/17 16:30 Piperacillin Sod/ Tazobactam Sod 100 ml @ 200 mls/hr Q6H IV 04/21/17 00:00 04/24/17 13:43 Sodium Chloride 1,000 ml @ 0 mls/hr Q8H IV 04/20/17 16:26 04/23/17 08:34 (NS Flush) 2 ml UNSCH PRN IV FLUSH 04/20/17 16:30 (NS Flush) 2 ml BID IV FLUSH 04/20/17 21:00 04/24/17 10:41 (Tylenol) 650 mg Q4H PRN PO 04/20/17 16:30 (Zofran Inj) 4 mg Q6H PRN IVP 04/20/17 16:30 (Compazine Supp) 25 mg Q12H PRN RECTAL 04/20/17 16:30 (Ambien) 5 mg HS PRN PO 04/20/17 16:30 04/23/17 23:38 (Lovenox Inj) 40 mg Q24H SQ 04/20/17 17:00 Future Hold 04/20/17 17:07 (Narcan Inj) 0.4 mg UNSCH PRN IV PUSH 04/20/17 16:30 (Antionette-Colace) 1 tab BID PO 04/20/17 21:00 04/23/17 08:36 (Milk Of Magnesia Liq) 30 ml Q12H PRN PO 04/20/17 16:30 (Senokot) 17.2 mg Q12H PRN PO 04/20/17 16:30 (Dulcolax Supp) 10 mg DAILY PRN RECTAL 04/20/17 16:30 (Lactulose Liq) 30 ml DAILY PRN PO 04/20/17 16:30 (Romazicon Inj) 0.2 mg Q1M PRN IV PUSH 04/20/17 16:30 (Librium) 50 mg Q6H PRN PO 04/20/17 16:30 04/21/17 18:36 (Theragran) 1 tab DAILY PO 04/21/17 09:00 04/23/17 08:36 (Folate) 1 mg DAILY PO 04/21/17 09:00 04/23/17 08:36 (Vitamin B1) 100 mg DAILY PO 04/21/17 09:00 04/23/17 08:36 Miscellaneous Information 1 Q361D XX 04/20/17 16:45 (Chlorhexidine 2% Cloth) 3 pack Taper DAILY@04 TOP 04/21/17 04:00 04/17/18 03:59 04/22/17 04:00 (Chlorhexidine 2% Cloth) 3 pack UNSCH PRN TOP 04/20/17 16:45 (Habitrol 14 Mg Patch.24 Hr) 1 patch DAILY T-DERMAL 04/21/17 09:00 04/24/17 10:40 Miscellaneous Information 1 DAILY T-DERMAL 04/21/17 09:00 04/23/17 08:36 Vancomycin HCl 500 mg/Sodium Chloride 100 ml @ 200 mls/hr Q8H IV 04/21/17 00:00 04/24/17 10:39 Lactated Ringer's 1,000 ml @ 30 mls/hr Q24H PRN IV 04/22/17 00:45 04/25/17 00:44 04/22/17 11:54 Sodium Chloride 500 ml @ 30 mls/hr [id number] PRN IV 04/22/17 00:45 04/25/17 00:44 Miscellaneous Information SPECIFIC LAB TO BE DRAWN:VANCOMYCIN TROUGH DATE TO... ONCE ONCE .XX 04/25/17 07:45 04/25/17 07:46 (Dilaudid) 4 mg Q3H PRN PO 04/24/17 11:00 04/24/17 13:43 (Morphine Inj) 4 mg BID IV PUSH 04/24/17 14:45 A/P Assessment and Plan 1. With Diagnosis of Right inner upper medial thigh abscess, 8 x 10 cm. status post Incision and drainage, irrigation and debridement right inner thigh abscess with packing of Iodoform gauze. by Doctor Camarillo 04/22/17, continue antibiotics, following wound culture, discussed with General scalp treatment specialist MANAGER TRANSPORT and continue dressing changes and give morphine when packing, also Doctor Wilkins residential support specialist following for pain management. 2. Heroin abuse on CIWA protocol due to probable Withdrawal. strongly recommended to stop behavior. 3. Tobacco dependence continue Nicotine patch and strongly recommended to stop smoking 4. Electrolyte derangement replaced, Patient refusing laboratory to follow. DVT prophylaxis with SCDs. Code Status Full code Discharge Planning Once able to go home on NSAIDs no narcotics on discharge as per General Surgery and Doctor Wilkins. probable expected discharge recommended today for 04/28/17 Orlin Owusu MD Apr 24, 2017 15:10
--- NOTE | 2017-04-24 15:37 | HHI.PR ---
cc: Ady Camarillo MD Subjective Subjective Notes Up cleaning her room; making her bed Feels much better with PO Dilaudid Objective Vitals/I&O Vital Signs Date Time Temp Pulse Resp B/P (MAP) Pulse Ox O2 Delivery O2 Flow Rate FiO2 04/24/17 12:00 97.8 74 16 99/54 (69) 98 04/22/17 15:45 Room Air 04/22/17 15:30 2 04/21/17 00:39 21 Labs Date/Time Source Procedure Growth Status 04/20/17 14:20 Blood Peripheral Aerobic Blood Culture - Preliminary NO GROWTH IN 4 DAYS Resulted 04/20/17 14:20 Blood Peripheral Anaerobic Blood Culture - Preliminary NO GROWTH IN 4 DAYS Resulted 04/22/17 12:41 Wound Thigh Gram Stain - Final Complete 04/22/17 12:41 Wound Culture - Final S. Aureus Mrsa Complete Radiology Last Impressions Chest X-Ray 04/20/17 1355 Signed Impressions: Service Date/Time: Thursday, April 20, 2017 14:31 - CONCLUSION: No acute disease. Reuben Ron MD Lower Extremity CT 04/20/17 0000 Signed Impressions: Service Date/Time: Thursday, April 20, 2017 15:08 - CONCLUSION: 1. There is diffuse nonspecific edema throughout the subcutaneous soft tissues along the medial aspect of the right thigh. 2. Small focal fluid collection in the upper medial thigh measuring 2.2 x 1.3 cm suggestive of a small soft tissue abscess. Reuben Ron MD Cardiovascular: Regular Lungs: Clear Abdomen: Non-distended, Non-tender Extremities: Other (see below ) Narrative Exam RIGHT leg---s/p I&D of abscess---packing removed--- wound bed is beefy red with some minimal bleeding; repacked with moist 4x4 gauze; ABD applied and secured with paper tape A/P Problem List: (1) Cellulitis of right thigh ICD Codes: L03.115 - Cellulitis of right lower limb Status: Acute (2) Abscess of right thigh ICD Codes: L02.415 - Cutaneous abscess of right lower limb Status: Acute (3) IV drug user ICD Codes: F19.90 - Other psychoactive substance use, unspecified, uncomplicated Status: Acute Assessment and Plan 31 year old female with hx of IVDA with RIGHT leg pain with abscess; POD2 I&D of RIGHT leg -Continue antibiotics per Primary team -Regular diet -Continue dressing changes---okay to shower inbetween dressing changes -Pain control--- will be an issue with this patient; patient tolerated dressing change with PO Dilaudid but I do remain concerned that this is not the best option for the patient to go home with--Spoke with Dr. Beebe who will kindly come see the patient this evening and make recommendations for pain control on this patient. -Also discussed this with Dr. Nuñez with Rolando Hernandez (Nurse Manager Ct of ) Attending Statement NOTE FOR SURGICAL ATTENDING, DR. ADY CAMARILLO I agree with above assessment and plan. The exam, history, and the medical decision-making described in the above note were completed with the assistance of the mid-level provider. I reviewed and agree with the findings presented. I attest that I had a [id number] encounter with the patient on the same day, and personally performed and documented my assessment and findings in the medical record. The following services were provided during this hospital visit: Chart data review, vital sign assessments/reviewing monitor data Review of consultations notes if present. Medication orders/review and/or management Ordering and/or reviewing lab tests Ordering and/or interpreting/reviewing x-rays and/or diagnostic studies Care of the patient and discussion of the patient with the care team Documentation time To help prompt me to consider important information that might be impacting today's encounter and assessment, information from prior notes written by myself or my colleagues may have been "brought forward/copy and pasted" into today's note. Marizol Tiwari Apr 24, 2017 15:37 Ady Camarillo MD Apr 24, 2017 20:16
[2017-04-24 16:00] VITALS: BP 119/65; PULSE 88; RESP 18; TEMP 97.6; O2SAT 99
[2017-04-24 17:42] VITALS: O2SAT 98
[2017-04-24 20:00] VITALS: BP 119/78; PULSE 67; RESP 18; TEMP 96.5; O2SAT 96
[2017-04-24] MEDS: GABAPENTIN 300 MG CAP PO SCH (20:45)
--- NOTE | 2017-04-24 21:06 | PD.CONS ---
History of Present Illness Service Pain Management Consultation Consult Requested By Honey Tiwari Reason for Consult management of [id number] pain and chronic opiate use/abuse Primary Care Physician No Primary Care Physician Diagnoses: History of Present Illness This is a 31-year-old female with no prior past medical history who does have a history of recurrent IV heroin abuse who presented to the hospital with a right medial thigh abscess which was surgically debrided. Postoperatively she requires twice a day dressing changes for anticipated closure by secondary intention. The primary team and the general surgery team have reported that they've been unable to adequately control her pain with by mouth and IV opiates due to her chronic opiate abuse. There is concern over whether or not she will be able to be safely discharged home for home twice a day dressing changes if she cannot tolerate inpatient dressing changes. In addition, there is concern over abuse potential with prescribed by mouth opiates. On my evaluation, the patient reports that prior to this incident, she has some chronic low back pain for which she does not take any medicine and she "toughs it out ". She states that her chronic pain from her back pain is typically a 4 out of 10 and at its maximum on a bad day it is 7 out of 10. Again, she does not take any medicines for this. She does endorse intermittently off and on using heroin recreationally. She states that she had been clean for up to 2 months, but recently started using again over the past 1-2 weeks prior to her admission here. She states that she has been through opiate withdrawals in the past, but this time has not withdrawn since she's been inpatient, although she does note that she's been taking [id number] by mouth Dilaudid every 3 hours. She is very concerned that we are not able to control her pain, and she does state she wants to go home, but she is concerned that her pain will be controlled. She also states that she does not see any reason why we could not send her home with a 2 week prescription of Dilaudid that she can take as needed. Today, she describes her acute leg pain is tolerable when at rest. She would not give it a number but says that it most does not hurt when she is not moving. She does state that it's on tolerable when she sits up, walks, and is excruciating during dressing changes. She describes the pain as sharp, burning , stinging. Review of Systems Constitutional: DENIES: Diaphoretic episodes, Fatigue, Fever, Weight gain, Weight loss, Chills, Dizziness, Change in appetite, Night Sweats Endocrine: DENIES: Abnorml menstrual pattern, Heat/cold intolerance, Polydipsia , Polyuria, Polyphagia Eyes: DENIES: Blurred vision, Diplopia, Eye inflammation, Eye pain, Vision loss , Photosensitivity, Double Vision Ears, nose, mouth, throat: DENIES: Tinnitus, Hearing loss, Vertigo, Nasal discharge, Oral lesions, Throat pain, Hoarseness, Ear Pain, Running Nose, Epistaxis, Sinus Pain, Toothache, Odynophagia Respiratory: DENIES: Apneas, Cough, Snoring, Wheezing, Hemoptysis, Sputum production, Shortness of breath Cardiovascular: DENIES: Chest pain, Palpitations, Syncope, Dyspnea on Exertion , PND, Lower Extremity Edema, Orthopnea, Claudication Gastrointestinal: DENIES: Abdominal pain, Black stools, Bloody stools, Constipation, Diarrhea, Nausea, Vomiting, Difficulty Swallowing, Anorexia Genitourinary: DENIES: Abnormal vaginal bleeding, Dysmenorrhea, Dyspareunia, Sexual dysfunction, Urinary frequency, Urinary incontinence, Urgency, Hematuria , Dysuria, Nocturia, Vaginal discharge Musculoskeletal: DENIES: Joint pain, Muscle aches, Stiffness, Joint Swelling, Back pain, Neck pain Integumentary: DENIES: Abnormal pigmentation, Pruritus, Rash, Nail changes, Breast masses, Breast skin changes, Nipple discharge Hematologic/lymphatic: DENIES: Bruising, Lymphadenopathy Immunologic/allergic: DENIES: Eczema, Urticaria Neurologic: DENIES: Abnormal gait, Headache, Localized weakness, Paresthesias, Seizures, Speech Problems, Tremor, Poor Balance Psychiatric: DENIES: Anxiety, Confusion, Mood changes, Depression, Hallucinations, Agitation, Suicidal Ideation, Homicidal Ideation, Delusions Past Family Social History Allergies: Coded Allergies: No Known Allergies (Unverified , 04/20/17) Past Medical History No significant past medical history Past Surgical History Recent debridement of right thigh abscess Reported Medications None at home. Active Ordered Medications See MAR Family History Reviewed and found to be noncontributory to her acute illness Social History Recreational heroin use. Denies tobacco Physical Exam Vital Signs Vital Signs Date Time Temp Pulse Resp B/P (MAP) Pulse Ox O2 Delivery O2 Flow Rate FiO2 04/24/17 17:42 98 21 04/24/17 16:00 97.6 88 18 119/65 (83) 99 04/24/17 12:00 97.8 74 16 99/54 (69) 98 04/24/17 08:00 97.9 78 16 100/56 (71) 97 04/24/17 00:29 99.4 70 17 120/73 (89) 98 Physical Exam GENERAL: Young female, sitting up in bed, no acute distress HEENT: Normocephalic. Atraumatic. Pupils equal, round, reactive, conjugate. Mucous membranes are moist NECK: Trachea is midline. There is no JVD. CHEST: Room Air. Equal chest rise. Unlabored. CARDIOVASCULAR: Normal rate and regular rhythm. ABDOMEN: Soft, nontender, nondistended. No guarding. MUSCULOSKELETAL: Pulses 2+. No peripheral edema. There is approximately a 4 cm deep wound on the high medial aspect of the right thigh. There is no evidence of purulent drainage at this time. It is dressed in a gauze dressing NEUROLOGICAL: RASS 0. GCS 15. Follows commands. No focal deficits. Laboratory Date/Time Source Procedure Growth Status 04/20/17 14:20 Blood Peripheral Aerobic Blood Culture - Preliminary NO GROWTH IN 4 DAYS Resulted 04/20/17 14:20 Blood Peripheral Anaerobic Blood Culture - Preliminary NO GROWTH IN 4 DAYS Resulted 04/22/17 12:41 Wound Thigh Gram Stain - Final Complete 04/22/17 12:41 Wound Culture - Final S. Aureus Mrsa Complete Result Diagram: 04/21/17 0815 04/21/17 0815 Imaging Last Impressions Chest X-Ray 04/20/17 1355 Signed Impressions: Service Date/Time: Thursday, April 20, 2017 14:31 - CONCLUSION: No acute disease. Reuben Ron MD Lower Extremity CT 04/20/17 0000 Signed Impressions: Service Date/Time: Thursday, April 20, 2017 15:08 - CONCLUSION: 1. There is diffuse nonspecific edema throughout the subcutaneous soft tissues along the medial aspect of the right thigh. 2. Small focal fluid collection in the upper medial thigh measuring 2.2 x 1.3 cm suggestive of a small soft tissue abscess. Reuben Ron MD Assessment and Plan Assessment and Plan Assessment: 31-year-old female with history of recreational heroin abuse who presents with right thigh abscess and uncontrolled acute pain needs. I agree with the primary team and the general surgery team's assessment that she is a significantly elevated risk of abuse, dependence, morbidity, and mortality related to by mouth opiate use. Clearly, she is shown to have a high abuse potential given that she still has active IV opiate abuse. I think the best way to safely control her pain is to start with a multimodal approach with scheduled Tylenol, NSAIDs, alpha-2 agonist such as tizanidine, and gabapentin. I think ultimately, she will need a small dose of opiate over the next 1-2 weeks at time of dressing change, but when weighing all of our alternatives, I think by mouth Dilaudid has a much higher abuse potential then lower potency opioids such as oxycodone. We will plan on slowly transitioning over the next 2 -4 days once her multimodal approaches been in effect, and we will target sending her home with 10 mg of oxycodone by mouth twice a day for dressing changes only, with an anticipated 7 - 14 day total prescription. Recommendations: Acute right leg pain associated with abscess and dressing change: complicated and not-responsive to standard medical therapy. Comorbid Opiate Abuse Pain control regimen: tylenol 650mg po q6h scheduled ([id number]) ibuprofen 800mg po q6h scheduled (0000 - 0600 - 1200 - 1800) gabapentin 300mg po TID scheduled tizanidine 2mg po q12h scheduled ([id number]. has more muscle relaxant and pain properties than clonidine, but with similar alpha-2 agonism. also less hypotensive effects). for now, will keep PO dilaudid at 4mg and change to q4h prn for breakthrough pain. The dressing change plan will be as follows: For 04/25, please give PO dilaudid 30-60 minutes prior to dressing changes. no iv pain meds for dressing change unless physician evaluates patient and deems that dressing change will be unsuccessful without iv opiates. 04/26: will transition to PO dilaudid for dressing change alone (BID with dressing changes), but will have a single extra dose of PO dilaudid as needed for pain in between dressing changes. 04/27: will transition to oxycodone 10mg (10mg oxycodone is within 25% of the equivalent opiate dosing for dilaudid, but with much less IV abuse potential and street value), with the same schedule as above (BID with dressing changes and 1 additional prn for uncontrolled pain outside of dressing changes). 04/28: if she can tolerate this schedule, the plan will be to d/c home with 10mg po oxycodone BID for dressing changes, with a 14-day supply. Discharge medications: Gabapentin 300mg TID x 14 days and then taper over 6 days: 300mg po BID x 3 days , 300mg PO daily x 3 days, then off. (total 51 tabs) tylenol 650mg po q6h x 2 weeks. no taper needed. can either obtain OTC tylenol, or script given to her. advil 800mg po q6h x 2 weeks. no taper needed. OTC advil or can give script tizanidine 2mg po BID x 2 weeks. no refills. no need to taper medication, no withdraw potential. (total 28 tabs). oxycodone 10mg po BID x 14 days, total # 28 tabs, no refills. I will continue to follow the patient to make adjustments to her regimen as needed. Please contact me with questions or concerns. The success of this regimen depends on the medical team adhering to the plan as described, and if the plan needs to be amended due to patient pain needs, then please contact me. Please AVOID giving one-time breakthrough IV or PO opiate pain medications outside of the schedule described above, as this may interfere with the patient's understanding of her adequate and appropriate pain therapy. Discussed Condition With Ludy Almodovar, nurse dairy frozen manager 7N, Honey Tiwari. Rajeev Beebe MD Apr 24, 2017 21:06
[2017-04-24] MEDS: ACETAMINOPHEN 325 MG TAB PO SCH (22:25)
[2017-04-24] MEDS: IBUPROFEN 800 MG TAB PO SCH (22:41)
[2017-04-25 00:34] VITALS: BP 107/56; PULSE 70; RESP 18; TEMP 97.8; O2SAT 100
[2017-04-25] MEDS: CHLORHEXIDINE GLUCONATE 2 % 1 PACK (2 CLOTHS) TOP SCH (02:53)
[2017-04-25] MEDS: ACETAMINOPHEN 325 MG TAB PO SCH ×3 (02:53→13:58)
[2017-04-25] MEDS: HYDROmorphone HCL 4 MG TAB PO PRN ×3 (03:54→12:59)
[2017-04-25] MEDS: IBUPROFEN 800 MG TAB PO SCH ×2 (05:12→13:58)
[2017-04-25] MEDS ORDERED: PHARMACY ORDERED LAB ONE ×2 (07:45→15:45)
[2017-04-25 08:00] VITALS: BP 100/53; PULSE 84; RESP 14; TEMP 97.6; O2SAT 96
[2017-04-25] MEDS: VANCOMYCIN 500 MG/NS 100 ML IV SCH ×2 (08:00)
[2017-04-25] MEDS: REMOVE OLD PATCH T-DERMAL SCH (09:00)
[2017-04-25] MEDS: GABAPENTIN 300 MG CAP PO SCH ×2 (09:00→13:59)
[2017-04-25] MEDS: MULTIVITAMIN TAB PO SCH (09:00)
[2017-04-25] MEDS: THIAMINE HCL 100 MG TAB PO SCH (09:00)
[2017-04-25] MEDS: FOLIC ACID 1 MG TAB PO SCH (09:00)
[2017-04-25] MEDS: DOCUSATE SODIUM 50 MG/SENNA 8.6 MG TAB PO SCH (09:00)
[2017-04-25 12:00] VITALS: BP 102/59; PULSE 94; RESP 16; TEMP 98.2; O2SAT 95
--- NOTE | 2017-04-25 12:43 | HHI.PR ---
cc: Ady Camarillo MD Subjective Subjective Notes Resting in bed No issues overnight No problem with dressing change overnight Objective Vitals/I&O Vital Signs Date Time Temp Pulse Resp B/P (MAP) Pulse Ox O2 Delivery O2 Flow Rate FiO2 04/25/17 12:00 98.2 94 16 102/59 (73) 95 04/24/17 17:42 21 04/22/17 15:45 Room Air 04/22/17 15:30 2 Labs Date/Time Source Procedure Growth Status 04/20/17 14:20 Blood Peripheral Aerobic Blood Culture - Final NO GROWTH IN 5 DAYS Complete 04/20/17 14:20 Blood Peripheral Anaerobic Blood Culture - Final NO GROWTH IN 5 DAYS Complete 04/22/17 12:41 Wound Thigh Gram Stain - Final Complete 04/22/17 12:41 Wound Culture - Final S. Aureus Mrsa Complete Radiology Last Impressions Chest X-Ray 04/20/17 1355 Signed Impressions: Service Date/Time: Thursday, April 20, 2017 14:31 - CONCLUSION: No acute disease. Reuben Ron MD Lower Extremity CT 04/20/17 0000 Signed Impressions: Service Date/Time: Thursday, April 20, 2017 15:08 - CONCLUSION: 1. There is diffuse nonspecific edema throughout the subcutaneous soft tissues along the medial aspect of the right thigh. 2. Small focal fluid collection in the upper medial thigh measuring 2.2 x 1.3 cm suggestive of a small soft tissue abscess. Reuben Ron MD Cardiovascular: Regular Lungs: Clear Abdomen: Non-distended, Non-tender Extremities: Other (see below ) Narrative Exam RIGHT leg---s/p I&D of abscess---dressing in place; RN to change dressing today A/P Problem List: (1) Cellulitis of right thigh ICD Codes: L03.115 - Cellulitis of right lower limb Status: Acute (2) Abscess of right thigh ICD Codes: L02.415 - Cutaneous abscess of right lower limb Status: Acute (3) IV drug user ICD Codes: F19.90 - Other psychoactive substance use, unspecified, uncomplicated Status: Acute Assessment and Plan 31 year old female with hx of IVDA with RIGHT leg pain with abscess; POD3 I&D of RIGHT leg -Continue antibiotics per Primary team -Regular diet -Continue dressing changes---okay to shower inbetween dressing changes -Pain control--- Dr. Beebe kindly made a pain regiment for the patient so she can go home on minimal pain medications due to her history -GS clear for DC when pain regiment figured out -Patient already has appt set up with Dr. Camarillo for May 06 at 2:50PM -GS will see PRN over the weekend Marizol Tiwari Apr 25, 2017 12:43 Ady Camarillo MD Apr 28, 2017 12:40
[2017-04-25] MEDS: SODIUM CHLORIDE 0.9% FLUSH 10 ML FLUSH IV FLUSH SCH (13:58)
[2017-04-25] MEDS: NICOTINE 14 MG/24 HR PATCH T-DERMAL SCH (13:59)
--- NOTE | 2017-04-25 14:19 | HHI.PR ---
Subjective Remarks Patient is a 31-year-old female. Who presented to the hospital with an abscess/ area of large swelling with erythema and tenderness in the right upper thigh almost groin area. With chills and low-grade fever. Patient has a history of IV drug abuse with heroin. She states this has been developing over the past week. Denies any drainage yet. Denies any nausea vomiting shortness of breath or cough. She denies any chest pain or abdominal pain. She denies any numbness or tingling in the right leg denies any vaginal or urinary symptoms denies that she is as she is currently on her period patient is noted to have low-grade temperatures and tachycardia. She has no known drug allergies. Is currently not taking any medications other than her when that she shooting up Has a history of what sounds like probably MRSA and abscesses from shooting up heroin 04/21: Seen in his bedroom in the presence of nurse, stable awaiting final recommendations by General Surgery for probable I and D tomorrow. 04/22: Stable in her bedroom status post I and D, asked for IV pain medicine due to increased pain after surgery will add IV pain medicine today and follow. 04/23: seen in her bedroom, and discussed with seafood technology specialist OUTSIDE PLANT SUPERVISOR, will continue dressing changes probable until next Friday and if tolerates without IV pain medicine okay to go home on [facility] for wound care. awaiting also wound culture to rule out MRSA, seen in the presence of nurse Pbshelly madeleine. 04/24: stable in her bedroom, no complain, medicines changed to by mouth, consulted Doctor Franky for pain management, will be discharge soon when pain controlled by Pain medicines, and may be able to be discharge on NSAIDs, no Narcotics on discharge, discussed with General Surgery's OUTSIDE PLANT SUPERVISOR Miss Marizol Tiwari 04/25: Stable seen in her bedroom, performing her wound care herself, wants to go home, no further management by general surgery recommended to follow with Doctor Camarillo for May 06 2017, no nausea, vomit or diarrhea. Objective Vital Signs Date Time Temp Pulse Resp B/P (MAP) Pulse Ox O2 Delivery O2 Flow Rate FiO2 04/25/17 12:00 98.2 94 16 102/59 (73) 95 04/25/17 08:00 97.6 84 14 100/53 (69) 96 04/25/17 00:34 97.8 70 18 107/56 (73) 100 04/24/17 20:00 96.5 67 18 119/78 (92) 96 04/24/17 17:42 98 21 04/24/17 16:00 97.6 88 18 119/65 (83) 99 I/O 04/24/17 04/24/17 04/24/17 04/25/17 04/25/17 04/25/17 07:00 15:00 23:00 07:00 15:00 23:00 Intake Total 1080 ml 1300 ml 760 ml Balance 1080 ml 1300 ml 760 ml Intake Oral 780 ml 1200 ml 760 ml IV Total 300 ml 100 ml # Voids 4 4 3 # Bowel Movements 0 1 Result Diagram: 04/21/17 0815 04/21/17 0815 Imaging Last Impressions Chest X-Ray 04/20/17 1355 Signed Impressions: Service Date/Time: Thursday, April 20, 2017 14:31 - CONCLUSION: No acute disease. Reuben Ron MD Lower Extremity CT 04/20/17 0000 Signed Impressions: Service Date/Time: Thursday, April 20, 2017 15:08 - CONCLUSION: 1. There is diffuse nonspecific edema throughout the subcutaneous soft tissues along the medial aspect of the right thigh. 2. Small focal fluid collection in the upper medial thigh measuring 2.2 x 1.3 cm suggestive of a small soft tissue abscess. Reuben Ron MD Procedures With Diagnosis of Right inner upper medial thigh abscess, 8 x 10 cm. status post Incision and drainage, irrigation and debridement right inner thigh abscess with packing of Iodoform gauze. by Doctor Camarillo 04/22/17 Other Results Laboratory Tests Test 04/20/17 14:20 04/20/17 17:57 04/21/17 08:15 04/21/17 17:14 Prothrombin Time 11.1 SEC Prothromb Time International Ratio 1.1 RATIO Activated Partial Thromboplast Time 23.1 SEC Lactic Acid Level 1.1 mmol/L Nasal Screen MRSA (PCR) MRSA DETECTED White Blood Count 7.6 TH/MM3 Red Blood Count 3.62 MIL/MM3 Hemoglobin 11.7 GM/DL Hematocrit 33.3 % Mean Corpuscular Volume 92.1 FL Mean Corpuscular Hemoglobin 32.3 PG Mean Corpuscular Hemoglobin Concent 35.0 % Red Cell Distribution Width 15.3 % Platelet Count 182 TH/MM3 Mean Platelet Volume 8.4 FL Neutrophils (%) (Auto) 79.8 % Lymphocytes (%) (Auto) 14.2 % Monocytes (%) (Auto) 5.2 % Eosinophils (%) (Auto) 0.6 % Basophils (%) (Auto) 0.2 % Neutrophils # (Auto) 6.0 TH/MM3 Lymphocytes # (Auto) 1.1 TH/MM3 Monocytes # (Auto) 0.4 TH/MM3 Eosinophils # (Auto) 0.0 TH/MM3 Basophils # (Auto) 0.0 TH/MM3 CBC Comment DIFF FINAL Differential Comment Blood Urea Nitrogen 6 MG/DL Creatinine 0.69 MG/DL Random Glucose 115 MG/DL Total Protein 6.0 GM/DL Albumin 2.4 GM/DL Calcium Level 7.7 MG/DL Phosphorus Level 3.0 MG/DL Magnesium Level 1.9 MG/DL Alkaline Phosphatase 69 U/L Aspartate Amino Transf (AST/SGOT) 38 U/L Alanine Aminotransferase (ALT/SGPT) 22 U/L Total Bilirubin 0.5 MG/DL Sodium Level 141 MEQ/L Potassium Level 3.2 MEQ/L Chloride Level 109 MEQ/L Carbon Dioxide Level 25.0 MEQ/L Anion Gap 7 MEQ/L Estimat Glomerular Filtration Rate 100 ML/MIN Hemoglobin A1c 4.9 % Free Thyroxine 1.82 NG/DL Thyroid Stimulating Hormone 3rd Gen 0.362 uIU/ML Vancomycin Level Trough 14.8 MCG/ML Objective Remarks GENERAL: No acute distress. HEAD: Atraumatic. Normocephalic. EYES: Pupils equal round and reactive. NECK: Supple, no JVD. CARDIOVASCULAR: Regular rate and rhythm without murmurs. RESPIRATORY: Clear to auscultation. Breath sounds equal bilaterally. No wheezes , rales, or rhonchi. MUSCULOSKELETAL: Came from Surgery not evaluated this area today. NEUROLOGICAL: Awake and alert. Medications and IVs Current Medications Medications (Trade) Dose Ordered Sig/Daniel Route Start Time Stop Time Status Last Admin Pharmacy Profile Note 0 ml @ 0 mls/hr UNSCH OTHER 04/20/17 16:30 Sodium Chloride 1,000 ml @ 0 mls/hr Q8H IV 04/20/17 16:26 04/23/17 08:34 (NS Flush) 2 ml UNSCH PRN IV FLUSH 04/20/17 16:30 (NS Flush) 2 ml BID IV FLUSH 04/20/17 21:00 04/25/17 13:58 (Zofran Inj) 4 mg Q6H PRN IVP 04/20/17 16:30 (Compazine Supp) 25 mg Q12H PRN RECTAL 04/20/17 16:30 (Lovenox Inj) 40 mg Q24H SQ 04/20/17 17:00 Future Hold 04/20/17 17:07 (Narcan Inj) 0.4 mg UNSCH PRN IV PUSH 04/20/17 16:30 (Antionette-Colace) 1 tab BID PO 04/20/17 21:00 04/23/17 08:36 (Milk Of Magnesia Liq) 30 ml Q12H PRN PO 04/20/17 16:30 (Senokot) 17.2 mg Q12H PRN PO 04/20/17 16:30 (Dulcolax Supp) 10 mg DAILY PRN RECTAL 04/20/17 16:30 (Lactulose Liq) 30 ml DAILY PRN PO 04/20/17 16:30 (Romazicon Inj) 0.2 mg Q1M PRN IV PUSH 04/20/17 16:30 (Librium) 50 mg Q6H PRN PO 04/20/17 16:30 04/21/17 18:36 (Theragran) 1 tab DAILY PO 04/21/17 09:00 04/23/17 08:36 (Folate) 1 mg DAILY PO 04/21/17 09:00 04/23/17 08:36 (Vitamin B1) 100 mg DAILY PO 04/21/17 09:00 04/23/17 08:36 Miscellaneous Information 1 Q361D XX 04/20/17 16:45 (Chlorhexidine 2% Cloth) 3 pack Taper DAILY@04 TOP 04/21/17 04:00 04/17/18 03:59 04/22/17 04:00 (Chlorhexidine 2% Cloth) 3 pack UNSCH PRN TOP 04/20/17 16:45 (Habitrol 14 Mg Patch.24 Hr) 1 patch DAILY T-DERMAL 04/21/17 09:00 04/25/17 13:59 Miscellaneous Information 1 DAILY T-DERMAL 04/21/17 09:00 04/25/17 09:00 Vancomycin HCl 500 mg/Sodium Chloride 100 ml @ 200 mls/hr Q8H IV 04/21/17 00:00 04/24/17 22:42 (Tylenol) 650 mg Q6H PO 04/24/17 21:00 04/25/17 13:58 (Motrin) 800 mg Q6H PO 04/25/17 00:00 04/25/17 13:58 (Zanaflex) 2 mg Q12HR PO 04/24/17 21:00 04/25/17 13:58 (Neurontin) 300 mg TID PO 04/24/17 20:45 04/25/17 13:59 (Dilaudid) 4 mg Q4H PRN PO 04/24/17 20:45 04/25/17 12:59 Miscellaneous Information SPECIFIC LAB TO BE SANCHEZ... ONCE ONCE .XX 04/25/17 15:45 04/25/17 15:46 A/P Assessment and Plan 1. With Diagnosis of Right inner upper medial thigh abscess, 8 x 10 cm. status post Incision and drainage, irrigation and debridement right inner thigh abscess with packing of Iodoform gauze. by Doctor Marquise 04/22/17, wound culture positive for MRSA sensitive to Clindamycin started on by mouth Clindamycin. Doctor Abiel following for Pain management. 2. Heroin abuse on CIWA protocol due to probable Withdrawal. strongly recommended to stop behavior. 3. Tobacco dependence continue Nicotine patch and strongly recommended to stop smoking 4. Electrolyte derangement replaced, Patient refusing laboratory to follow. DVT prophylaxis with SCDs. Code Status Full code Discharge Planning okay to discharge from Medicine standpoint. Orlin Owusu MD Apr 25, 2017 14:19
[2017-04-25] MEDS ORDERED: CLIN300C5 PO (14:46)
[2017-04-25] MEDS ORDERED: OXYC-395 PO (14:46)
[2017-04-25] MEDS ORDERED: FOLI1TAB6 PO (14:46)
[2017-04-25] MEDS ORDERED: THIA100 PO (14:46)
[2017-04-25] MEDS ORDERED: NICO14DI23 T-DERMAL (14:46)
--- NOTE | 2017-04-25 14:49 | HHI.DS ---
Discharge Summary Admission Date Apr 20, 2017 at 16:11 Discharge Date: Apr 25, 2017 Admitting Diagnosis Right Thigh Cellulitis/Abscess with Sepsis (1) IV drug user ICD Code: F19.90 - Other psychoactive substance use, unspecified, uncomplicated Diagnosis: Principal Status: Acute (2) Cellulitis of right thigh ICD Code: L03.115 - Cellulitis of right lower limb Diagnosis: Principal Status: Acute (3) Abscess of right thigh ICD Code: L02.415 - Cutaneous abscess of right lower limb Diagnosis: Principal Status: Acute (4) Tobacco abuse ICD Code: Z72.0 - Tobacco use Diagnosis: Principal (5) Heroin abuse ICD Code: F11.10 - Opioid abuse, uncomplicated Diagnosis: Principal Procedures With Diagnosis of Right inner upper medial thigh abscess, 8 x 10 cm. status post Incision and drainage, irrigation and debridement right inner thigh abscess with packing of Iodoform gauze. by Doctor Marquise 04/22/17 Brief History - From Admission Patient is a 31-year-old female. Who presented to the hospital with an abscess/ area of large swelling with erythema and tenderness in the right upper thigh almost groin area. With chills and low-grade fever. Patient has a history of IV drug abuse with heroin. She states this has been developing over the past week. Denies any drainage yet. Denies any nausea vomiting shortness of breath or cough. She denies any chest pain or abdominal pain. She denies any numbness or tingling in the right leg denies any vaginal or urinary symptoms denies that she is as she is currently on her period patient is noted to have low-grade temperatures and tachycardia. She has no known drug allergies. Is currently not taking any medications other than her when that she shooting up Has a history of what sounds like probably MRSA and abscesses from shooting up heroin CBC/BMP: 04/21/17 0815 04/21/17 0815 Imaging Last Impressions Chest X-Ray 04/20/17 9448 Signed Impressions: Service Date/Time: Thursday, April 20, 2017 14:31 - CONCLUSION: No acute disease. Reuben Ron MD Lower Extremity CT 04/20/17 0000 Signed Impressions: Service Date/Time: Thursday, April 20, 2017 15:08 - CONCLUSION: 1. There is diffuse nonspecific edema throughout the subcutaneous soft tissues along the medial aspect of the right thigh. 2. Small focal fluid collection in the upper medial thigh measuring 2.2 x 1.3 cm suggestive of a small soft tissue abscess. Reuben Ron MD PE at Discharge GENERAL: No acute distress. HEAD: Atraumatic. Normocephalic. EYES: Pupils equal round and reactive. NECK: Supple, no JVD. CARDIOVASCULAR: Regular rate and rhythm without murmurs. RESPIRATORY: Clear to auscultation. Breath sounds equal bilaterally. No wheezes , rales, or rhonchi. MUSCULOSKELETAL: Came from Surgery not evaluated this area today. NEUROLOGICAL: Awake and alert. Hospital Course Patient is a 31-year-old female. Who presented to the hospital with an abscess/ area of large swelling with erythema and tenderness in the right upper thigh almost groin area. With chills and low-grade fever. Patient has a history of IV drug abuse with heroin. She states this has been developing over the past week. Denies any drainage yet. Denies any nausea vomiting shortness of breath or cough. She denies any chest pain or abdominal pain. She denies any numbness or tingling in the right leg denies any vaginal or urinary symptoms denies that she is as she is currently on her period patient is noted to have low-grade temperatures and tachycardia. She has no known drug allergies. Is currently not taking any medications other than her when that she shooting up Has a history of what sounds like probably MRSA and abscesses from shooting up heroin 04/21: Seen in his bedroom in the presence of nurse, stable awaiting final recommendations by General Surgery for probable I and D tomorrow. 04/22: Stable in her bedroom status post I and D, asked for IV pain medicine due to increased pain after surgery will add IV pain medicine today and follow. 04/23: seen in her bedroom, and discussed with environmental protection specialist CAREER PORTALS TEACHER, will continue dressing changes probable until next Friday and if tolerates without IV pain medicine okay to go home on [facility] for wound care. awaiting also wound culture to rule out MRSA, seen in the presence of nurse Miss Holly salvador. 04/24: stable in her bedroom, no complain, medicines changed to by mouth, consulted Doctor Franky for pain management, will be discharge soon when pain controlled by Pain medicines, and may be able to be discharge on NSAIDs, no Narcotics on discharge, discussed with General Surgery's CAREER PORTALS TEACHER Miss Marizol Tiwari 04/25: Stable seen in her bedroom, performing her wound care herself, wants to go home, no further management by general surgery recommended to follow with Doctor Camarillo for May 06 2017, no nausea, vomit or diarrhea. Assessment and Plan 1. With Diagnosis of Right inner upper medial thigh abscess, 8 x 10 cm. status post Incision and drainage, irrigation and debridement right inner thigh abscess with packing of Iodoform gauze. by Doctor Camarillo 04/22/17, wound culture positive for MRSA sensitive to Clindamycin started on by mouth Clindamycin for 10 days. 2. Heroin abuse on CIWA protocol due to probable Withdrawal. strongly recommended to stop behavior. 3. Tobacco dependence continue Nicotine patch and strongly recommended to stop smoking 4. Electrolyte derangement replaced, Patient refusing laboratory to follow. DVT prophylaxis with SCDs. Code Status Full code Discharge Planning Discharge home on [facility] for wound care. Pt Condition on Discharge: Good Discharge Disposition: Disch w/ Home Health Serv Discharge Time: > 30 minutes Discharge Instructions DIET: Follow Instructions for: As Tolerated, No Restrictions Activities you can perform: Regular-No Restrictions Orlin Owusu MD Apr 25, 2017 14:49
[2017-04-25] MEDS ORDERED: CLINDAMYCIN 150 MG CAP PO SCH (15:00)
== END 2017-04-25 16:16 | disposition home health service (06) | DRG 580 ==
LOC: NEPD 13:18 → NEDA 16:11 → N07B 17:35
PROVIDERS: ADMIT Internal Medicine; ATTEND Internal Medicine
PROC: 0JDL0ZZ Extraction of Right Upper Leg Subcutaneous Tissue and Fascia, Open Approach (ICD-10-PCS; 2017-04-22)
PROC: 0J9L0ZZ Drainage of Right Upper Leg Subcutaneous Tissue and Fascia, Open Approach (ICD-10-PCS; principal; 2017-04-22 12:06)
DX: L02.415 Cutaneous abscess of right lower limb (principal); L02.214 Cutaneous abscess of groin; F11.23 Opioid dependence with withdrawal; L03.314 Cellulitis of groin; L03.115 Cellulitis of right lower limb; E87.6 Hypokalemia; B95.62 Methicillin resistant Staphylococcus aureus infection as the cause of diseases classified elsewhere; Z72.0 Tobacco use; Z86.14 Personal history of Methicillin resistant Staphylococcus aureus infection
CPT/HCPCS: 71010; 73701; 76937; 80053; 80202; 83036; 83605; 83735; 84100; 84439; 84443; 85025; 85610; 85730; 86403; 87040; 87070; 87186; 87205; 87641; 93005; 96361; 96365; J0131; J1650; J2250; J2270; J2543; J3010; J3370; J7030; J7050; J7120; Q9967